=== PATIENT | male | born 1965 | race Caucasian/White ===

== ENCOUNTER → 2019-11-23 07:41 | Outpatient (BNVA) | payer MEDICARE, SELFPAY | PROVIDERS: Family Provider Internal Medicine; PCP Internal Medicine; Visit Provider Nurse Practitioner | DX: F33.2 Major depressive disorder, recurrent severe without psychotic features (principal); F40.10 Social phobia, unspecified | CPT/HCPCS: 99213 ==

== ENCOUNTER → 2019-12-23 07:53 | Outpatient (BNVA) | payer MEDICARE, SELFPAY | PROVIDERS: Family Provider Internal Medicine; PCP Internal Medicine; Visit Provider Social Worker | DX: F33.2 Major depressive disorder, recurrent severe without psychotic features (principal); F40.10 Social phobia, unspecified | CPT/HCPCS: 90834 ==

== ENCOUNTER → 2020-01-06 07:48 | Outpatient (BNVA) | payer MEDICARE, SELFPAY | PROVIDERS: Family Provider Internal Medicine; PCP Internal Medicine; Visit Provider Social Worker | DX: F33.2 Major depressive disorder, recurrent severe without psychotic features (principal); F40.10 Social phobia, unspecified | CPT/HCPCS: 90834 ==

== ENCOUNTER → 2020-02-07 07:54 | Outpatient (BNVA) | payer MEDICARE, SELFPAY | PROVIDERS: Family Provider Internal Medicine; PCP Internal Medicine; Visit Provider Specialist | DX: G40.109 Localization-related (focal) (partial) symptomatic epilepsy and epileptic syndromes with simple partial seizures, not intractable, without status epilepticus (principal) | CPT/HCPCS: 99213 ==

== ENCOUNTER → 2020-02-22 08:11 | Outpatient (BNVA) | payer MEDICARE, SELFPAY | PROVIDERS: Family Provider Internal Medicine; PCP Internal Medicine; Visit Provider Nurse Practitioner | DX: F40.10 Social phobia, unspecified (principal); F33.2 Major depressive disorder, recurrent severe without psychotic features | CPT/HCPCS: 99213 ==

== ENCOUNTER → 2020-02-24 10:39 | Outpatient (BNVA) | payer MEDICARE, SELFPAY | PROVIDERS: Family Provider Internal Medicine; PCP Internal Medicine; Visit Provider Social Worker | DX: F40.10 Social phobia, unspecified (principal); F33.2 Major depressive disorder, recurrent severe without psychotic features | CPT/HCPCS: 90834 ==

== ENCOUNTER → 2020-03-08 12:07 | Outpatient (BNVA) | payer MEDICARE, SELFPAY | PROVIDERS: Family Provider Internal Medicine; PCP Internal Medicine; Visit Provider Specialist | DX: G40.909 Epilepsy, unspecified, not intractable, without status epilepticus (principal) | CPT/HCPCS: 95816 ==

== ENCOUNTER 2020-03-08 14:57 | Outpatient (CLI) | payer MEDICARE, SELFPAY ==
--- NOTE | 2020-03-08 15:19 | CT_ITS ---
WS: [id number] CT HEAD TECHNIQUE: Noncontrast CT of the head obtained from the skullbase to the vertex. CLINICAL INFORMATION: PATIENT FELL MULTIPLE TIMES COMPARISON: None. DLP: 800.[address] scans at [facility] use at least one of these dose optimization techniques: automat ed exposure control; mA and/or kV adjustment per patient size (includes targeted exams where dose is matched to clinical indication); or iterative reconstruction. FINDINGS: No evidence of intracranial hemorrhage or mass effect. Ventricular system and basal cisterns are hong nt. Moderate small vessel changes with moderate parenchymal volume loss. Prior postoperative changes left frontoparietal temporal craniotomy with cranioplasty. Chronic encephalomalacia in the underlying left temporal lobe resection cavity. Ex vacuo dilatation left lateral ventricle. No intracranial hem orrhage. Mastoid air cells are well aerated. Paranasal sinuses are well aerated. Paranasal sinuses and mastoid air cells are well aerated. .Normal visualized soft tissues. CT/CT head wo con* [id number] IMPRESSION: 1. Chronic postoperative changes left frontal parietal and temporal craniotomy with resection cavity in the left temporal lobe with encephalomalacia. 2. Ex vacuo dilatation left lateral ventricle unchanged. 3. No intracranial hemorrhage.
[2020-03-08 16:38] LABS: Alanine Aminotransferase 20 U/L (0-41); Albumin Level 4.8 g/dL (3.5-5.2); Alkaline Phosphatase 101 IU/L (40-130); Anion Gap 17.5 (5-19); Aspartate Amino Transferase 30 U/L (0-40); Blood Urea Nitrogen 13 mg/dL (6-20); Calcium 9.9 mg/dL (8.5-10.5); Carbon Dioxide 26 mmol/L (22-29); Chloride 102 mmol/L (98-107); Globulin 2.7 g/dL (1.3-4.6); Glomerular Filtration Rate 69.8 mL/min (90-130); Glucose 105 mg/dL (65-115); Osmolality Calculated 291 mOsm/kg (285-295); Potassium 3.5 mmol/L (3.5-5.1); Sodium 142 mmol/L (136-145); Thyroid Stimulating Hormone 2.53 uIU/mL (0.27-4.20); Total Bilirubin 0.7 mg/dL (0.15-1.2); Total Protein 7.5 g/dL (6.6-8.7)
[2020-03-17 13:07] LABS: Lacosamie (Vimpat) 16.2 mcg/mL
== END 2020-03-08 14:58 | disposition home or self-care (01) ==
LOC: RAD 15:03
PROVIDERS: Specialist; Family Provider Internal Medicine; PCP Internal Medicine; Visit Provider Physician Assistant
DX: G40.109 Localization-related (focal) (partial) symptomatic epilepsy and epileptic syndromes with simple partial seizures, not intractable, without status epilepticus (principal); G93.89 Other specified disorders of brain
CPT/HCPCS: 70450; 80053; 80299; 84443

== ENCOUNTER 2020-03-16 14:52 | Outpatient (CLI) | payer MEDICARE, SELFPAY ==
[2020-03-22 15:41] LABS: Lacosamie (Vimpat) 11.2 mcg/mL
== END 2020-03-16 14:53 | disposition home or self-care (01) ==
LOC: LAB 14:56
PROVIDERS: Family Provider Internal Medicine; PCP Internal Medicine; Visit Provider Specialist
DX: G40.109 Localization-related (focal) (partial) symptomatic epilepsy and epileptic syndromes with simple partial seizures, not intractable, without status epilepticus (principal)
CPT/HCPCS: 36415; 80299

== ENCOUNTER → 2020-06-15 07:32 | Outpatient (BNVA) | payer MEDICARE, SELFPAY | PROVIDERS: Family Provider Internal Medicine; PCP Internal Medicine; Visit Provider Nurse Practitioner | DX: F33.2 Major depressive disorder, recurrent severe without psychotic features (principal); F40.10 Social phobia, unspecified | CPT/HCPCS: 99213 ==

== ENCOUNTER → 2020-06-29 10:41 | Outpatient (BNVA) | payer MEDICARE, SELFPAY | PROVIDERS: Family Provider Internal Medicine; PCP Internal Medicine; Visit Provider Specialist | DX: G93.40 Encephalopathy, unspecified (principal); G40.109 Localization-related (focal) (partial) symptomatic epilepsy and epileptic syndromes with simple partial seizures, not intractable, without status epilepticus | CPT/HCPCS: 36415; 80175; 80299; 95816 ==

== ENCOUNTER 2020-06-29 15:14 | Outpatient (CLI) | payer MEDICARE, SELFPAY ==
[2020-07-03 19:19] LABS: Lamotrigine (Lamictal) Level 6.2 mcg/mL (4.0-18.0)
[2020-07-05 16:20] LABS: Lacosamie (Vimpat) 10.8 mcg/mL
== END 2020-06-29 15:15 | disposition home or self-care (01) ==
LOC: LAB 15:21
PROVIDERS: Family Provider Internal Medicine; PCP Internal Medicine; Visit Provider Specialist
DX: G40.109 Localization-related (focal) (partial) symptomatic epilepsy and epileptic syndromes with simple partial seizures, not intractable, without status epilepticus (principal)
CPT/HCPCS: 36415; 80175; 80299

== ENCOUNTER → 2020-08-14 08:34 | Outpatient (BNVA) | payer MEDICARE, SELFPAY | PROVIDERS: Family Provider Internal Medicine; PCP Internal Medicine; Visit Provider Specialist | DX: G40.109 Localization-related (focal) (partial) symptomatic epilepsy and epileptic syndromes with simple partial seizures, not intractable, without status epilepticus (principal) | CPT/HCPCS: 99214 ==

== ENCOUNTER → 2020-08-24 08:28 | Outpatient (BNVA) | payer MEDICARE, SELFPAY | PROVIDERS: Family Provider Internal Medicine; PCP Internal Medicine; Visit Provider Nurse Practitioner | DX: F33.2 Major depressive disorder, recurrent severe without psychotic features (principal); F40.10 Social phobia, unspecified | CPT/HCPCS: 99214 ==

== ENCOUNTER → 2020-11-20 07:43 | Outpatient (BNVA) | payer MEDICARE, SELFPAY | PROVIDERS: Family Provider Internal Medicine; PCP Internal Medicine; Visit Provider Nurse Practitioner | DX: F33.2 Major depressive disorder, recurrent severe without psychotic features (principal); F40.10 Social phobia, unspecified | CPT/HCPCS: 99213 ==

== ENCOUNTER 2021-01-05 08:58 | Emergency (ER) | payer MEDICARE, SELFPAY ==
[2021-01-05 09:07] VITALS: BP 134/88; PULSE 87; RESP 16; TEMP 36.2; O2SAT 96; BMI 22.8
[2021-01-05 09:22] VITALS: BP 131/84; PULSE 82; RESP 16; O2SAT 98
--- NOTE | 2021-01-05 09:24 | ECG_ITS ---
[facility] Test Date: 2021-01-05 Pat Name: Moisés Ivy Department: Room: Gender: Male On Air Host: : 1965 Requested By: Chente Feng Order Number: [id number] Shira MD: Zander Phillips M.D. Measurements Intervals [place] Rate: 83 P: 61 LA: 155 QRS: 24 QRSD: 100 T: 72 QT: 346 QTc: 408 Interpretive Statements SINUS RHYTHM No previous ECG available for comparison Electronically Signed On 01-05-2021 16:07:41 LIQUEFACTION PLANT OPERATOR by Zander Phillips M.D. [id number]
--- NOTE | 2021-01-05 09:24 | CT_ITS ---
WS: [id number] CT HEAD NONCONTRAST HISTORY: AMS TECHNIQUE: Contiguous axial imaging performed through the brain in 2.5 mm imaging. Bone and soft tiss ue windows. Sagittal and coronal reformats reviewed. All CT scans at [facility] use at ast one of these dose optimization techniques: automated exposure control; mA and/or kV adjustment pe r patient size (includes targeted exams where dose is matched to clinical indication); or iterative r econstruction. DLP: 805.49 mGy.cm COMPARISON: 03/08/2020 No acute intracranial hemorrhage, midline shift or mass effect. Moderate atrophy and chronic ischemic disease. Resection of the LEFT temporal lobe with encephalomala yumi. Resection cavity is causing ex vacuole dilatation of the LEFT lateral ventricle. Ventricles: Mild dilatation of the ventricles, LEFT greater than RIGHT due to ex vacuole dilatation. Paranasal sinuses: As visualized are clear. Mastoid air cells: Well pneumatized. Calvarium and scalp: Craniotomy site involving the LEFT frontal, temporal and parietal regions. No in terval change. CT/CT head wo con* [id number] IMPRESSION: 1. Stable head CT since 03/08/2020. 2. Temporal lobe encephalomalacia from a prior tumor resection. Stable ex vacu ole dilatation of the LEFT lateral ventricle and craniotomy site. 3. Moderate chronic microvascular ischemic change.
--- NOTE | 2021-01-05 09:24 | XR_ITS ---
WS: [id number] PORTABLE CHEST HISTORY: dyspnea/cough COMPARISON: None available. Lungs are well-aerated. Lucency adjacent to the RIGHT costophrenic angle. Small pneumothorax is not e xcluded. Otherwise the lungs are clear. No pleural effusion. Cardiac size: Normal. Mediastinum/Aorta: Normal mediastinum. No osseous abnormality seen. XR/XR chest 1V portable [id number] IMPRESSION: 1. No pneumonia. 2. Indeterminate for possible small pneumothorax at the RIGHT costophrenic angl e. For confirmation upright PA chest radiograph during inspiration and expirati on or LEFT lateral decubitus chest can be obtained.
--- NOTE | 2021-01-05 09:36 | ED_ITS ---
HPI - Dizziness General: Chief Complaint: Dizziness Stated Complaint: dizziness, double vision Time Seen by Provider: 01/05/21 08:59 History of Present Illness: HPI Narrative: 55-year-old male was at work and got lightheaded and dizzy started having some disorientation and double vision. This happened around 830 he is pretty much completely resolved now except for the double vision but the double vision is mostly when he looks to the right. Associated symptoms: Denies chest pain, chills, headache(s), malaise, nausea, nasal congestion, palpitations, syncope or vomiting Associated neuro symptoms: Deny confusion, dysphagia or numbness in extremities Review of Systems Const: Denies: fever(s), chills, body aches, fatigue, malaise or night sweats Eyes: Reports: change in vision and blurry vision ENMT: Denies: throat pain, oral sores, dental pain, nasal discharge or nasal congestion Card: Denies: chest pain, palpitations, irregular heart rhythm, edema, syncope, dyspnea on exertion, orthopnea or leg pain with exertion Resp: Denies: dyspnea, productive cough, non-productive cough or wheezing GI: Denies: abdominal pain, nausea, vomiting, hematemesis, coffee ground em esis, dysphagia, heartburn, diarrhea, constipation, GI cramping, hematochezia or melena : Denies: flank pain, difficulty urinating, dysuria, urinary frequency, urinary urgency, urinary incontinence or hematuria Musc: Denies: neck pain, back pain, extremity pain, extremity swelling, joint pain or joint swelling Skin/Breast: Denies: rash, pruritus or erythema Neuro: Denies: headache(s), numbness in extremities, weakness in extremities, sensory changes, lack of coordination, difficulty walking, frequent falls, dizziness, vertigo or confusion Psych: Denies: anxiety, depression, loss of interest, visual hallucinations, auditory hallucinations, suicidal ideation or homicidal ideation Endo: Denies: polyuria, polydipsia, tired all the time or cold intolerance Morgan/Lymph: Denies: easy bruising, easy bleeding, petechiae, enlarged lymph nodes or tender lymph nodes PFSH ED PFSH: Medical History (Updated 01/05/21 @ 17:51 by Chente Urena DO) Major depressive disorder, recurrent severe without psychotic features Social phobia, unspecified Family History Other Diabetes Denies family history of CAD (coronary artery disease) Cancer Hypertension Stroke Social History (Updated 01/05/21 @ 09:11 by Stevie Lyn RN) Smoking and tobacco status: never smoked Alcohol intake: never History of recent travel: No Physical Exam Const: COMMON NORMALS: no acute distress GENERAL APPEARANCE: cooperative and comfortable ORIENTATION/CONSCIOUSNESS: Yes awake, Yes oriented to person, Yes oriented to place and Yes oriented to time HENMT: COMMON NORMALS: normocephalic, atraumatic, hearing grossly normal bilaterally, external ears normal, EAC's normal, TM's normal bilaterally, Normal nasal mucous membranes and turbinates present, moist oral mucous membranes and oropharynx normal HEAD & SCALP: normocephalic and atraumatic NOSE: Normal nasal mucous membranes and turbinates present EXTERNAL EAR: Yes external ears normal EXTERNAL AUDITORY CANAL: EAC's normal TYMPANIC MEMBRANE: TM's normal bilaterally Eye: COMMON NORMALS: Equal, round and reactive pupils present, EOMs intact bilaterally, conjunctivae normal and no scleral icterus CONJUNCTIVA: Yes conjunctivae normal PUPIL: Yes Equal, round and reactive pupils present Neck/C-Spine: COMMON NORMALS: full ROM, no lymphadenopathy, supple and no JVD Lymph: LYMPHATIC: no lymphadenopathy noted and no lymphedema noted Resp: COMMON NORMALS: normal respiratory effort, No retractions, No use of accessory muscles and clear to auscultation bilaterally AUSCULTATION: clear to auscultation bilaterally Cardio: COMMON NORMALS: no JVD, regular rate, regular rhythm and No murmurs present (Cardio) RATE: regular rate RHYTHM: regular rhythm GI: COMMON NORMALS: Soft to palpation and No hepatosplenomegaly present AUSCULTATION: Yes normoactive bowel sounds PALPATION: Yes Soft to palpation, No Tenderness to palpation present (GI), No Guarding due to palpation present (GI) and Yes No hepatosplenomegaly present Extremity: COMMON NORMALS: normal to inspection, capillary refill normal, no clubbing, cyanosis or edema, no calf tenderness and no pedal edema Neuro: SENSORIUM/ORIENTATION: Yes oriented to person, Yes oriented to place and Yes oriented to time Skin: COMMON NORMALS: no rashes or lesions noted GENERAL SKIN EXAM: no rashes or lesions noted Course Vital Signs: Vital signs: Vital Signs Temperature 97.1 F L 01/05/21 09:07 Pulse Rate 98 01/05/21 12:36 Respiratory Rate 18 01/05/21 12:36 Blood Pressure 117/76 01/05/21 10:59 Pulse Oximetry 92 01/05/21 12:36 MDM - Dizziness MDM Narrative: Medical decision making narrative: Symptoms completely resolved. Discussed with Dr. Martinez she thinks it probably is a combination of his medications. We will get levels on him discharge him home follow-up with Dr. Martinez next week if his any problems return. Lab Data: Labs: Lab Results 01/05/21 01/05/21 01/05/21 Range/Units 09:40 10:00 10:00 WBC 6.5 (4.0-10.0) 10^3/ uL RBC 5.05 (4.1-5.3) 10^6/u L Hgb 15.6 (11.7-16.6) g/dL Hct 45.9 (42.0-52.0) % MCV 90.9 (80-94) fL MCH 30.9 (28.0-34.0) pg MCHC 34.0 (30.0-36.0) g/dL RDW 12.9 (12.1-15.1) % Plt Count 224 (130-400) 10^3/c mm MPV 8.9 (7.4-10.4) fL Neut % (Auto) 77.4 % Lymph % (Auto) 11.8 % [place] % (Auto) 7.7 % Eos % (Auto) 1.7 % Baso % (Auto) 1.1 % Neut # (Auto) 5.00 (1.8-7.7) 10^3/u L Lymph # (Auto) 0.8 (0.8-4.8) 10^3/u L [place] # (Auto) 0.5 (0.2-0.9) 10^3/u L Eos # (Auto) 0.1 (0.0-0.8) 10^3/u L Baso # (Auto) 0.1 (0.0-0.1) 10^3/u L Nucleated RBC % (a uto) 0 % Nucleated RBCs # 0.0 /100WBC Sodium 139 (136-145) mmol/L Potassium 4.0 (3.5-5.1) mmol/L Chloride 105 (98-107) mmol/L Carbon Dioxide 25 (22-29) mmol/L Anion Gap 13.0 (5-19) BUN 15 (6-20) mg/dL Creatinine 0.9 (0.7-1.2) mg/dL GFR Calculation 87.9 L (90-130) mL/min Glucose 88 (65-115) mg/dL Calculated Osmolal ity 288 (285-295) mOsm/k g Calcium 8.9 (8.5-10.5) mg/dL Total Bilirubin 0.6 (0.15-1.2) mg/dL AST 22 (0-40) U/L ALT 18 (0-41) U/L Alkaline Phosphata se 87 (40-130) IU/L Creatine Kinase 118 (39-308) U/L Troponin T Baselin e (0-15) ng/L Troponin T 120 Min dena (0-15) ng/L Delta Troponin T (0-10) ABS# Total Protein 6.7 (6.6-8.7) g/dL Albumin 4.5 (3.5-5.2) g/dL Globulin 2.2 (1.3-4.6) g/dL Urine Color Yellow (Yellow) Urine Appearance Clear (CLEAR) Urine pH 7 (5-7) Ur Specific Gravit y 1.010 (1.005-1.030) Urine Protein Neg (Negative) Urine Glucose (UA) Norm (Normal) Urine Ketones Negative (Negative) Urine Blood Neg (Negative) Urine Nitrate Negative (Negative) Urine Bilirubin Neg (Negative) Urine Urobilinogen Norm (Negative) mg/dL Ur Leukocyte Ursula ase Negative (Negative) 01/05/21 01/05/21 Range/Units 10:00 12:09 WBC (4.0-10.0) 10^3/ uL RBC (4.1-5.3) 10^6/u L Hgb (11.7-16.6) g/dL Hct (42.0-52.0) % MCV (80-94) fL MCH (28.0-34.0) pg MCHC (30.0-36.0) g/dL RDW (12.1-15.1) % Plt Count (130-400) 10^3/c mm MPV (7.4-10.4) fL Neut % (Auto) % Lymph % (Auto) % [place] % (Auto) % Eos % (Auto) % Baso % (Auto) % Neut # (Auto) (1.8-7.7) 10^3/u L Lymph # (Auto) (0.8-4.8) 10^3/u L [place] # (Auto) (0.2-0.9) 10^3/u L Eos # (Auto) (0.0-0.8) 10^3/u L Baso # (Auto) (0.0-0.1) 10^3/u L Nucleated RBC % (a uto) % Nucleated RBCs # /100WBC Sodium (136-145) mmol/L Potassium (3.5-5.1) mmol/L Chloride (98-107) mmol/L Carbon Dioxide (22-29) mmol/L Anion Gap (5-19) BUN (6-20) mg/dL Creatinine (0.7-1.2) mg/dL GFR Calculation (90-130) mL/min Glucose (65-115) mg/dL Calculated Osmolal ity (285-295) mOsm/k g Calcium (8.5-10.5) mg/dL Total Bilirubin (0.15-1.2) mg/dL AST (0-40) U/L ALT (0-41) U/L Alkaline Phosphata se (40-130) IU/L Creatine Kinase (39-308) U/L Troponin T Baselin e 8 (0-15) ng/L Troponin T 120 Min dena 6.00 (0-15) ng/L Delta Troponin T -2.00 L (0-10) ABS# Total Protein (6.6-8.7) g/dL Albumin (3.5-5.2) g/dL Globulin (1.3-4.6) g/dL Urine Color (Yellow) Urine Appearance (CLEAR) Urine pH (5-7) Ur Specific Gravit y (1.005-1.030) Urine Protein (Negative) Urine Glucose (UA) (Normal) Urine Ketones (Negative) Urine Blood (Negative) Urine Nitrate (Negative) Urine Bilirubin (Negative) Urine Urobilinogen (Negative) mg/dL Ur Leukocyte Ursula ase (Negative) Discharge Plan Discharge Patient Disposition: Home Clinical Impression: Temporal lobe epilepsy, Medication side effects Condition: Stable Prescriptions: No Action cholecalciferol (vitamin D3) [Vitamin D3] 25 mcg (1,000 unit) capsule 1,000 unit PO DAILY@0700 RF: 0 Lamictal 150 mg tablet 150 mg PO BID@0700,1900 RF: 0 Zoloft 100 mg tablet 150 mg PO DAILY@0700 RF: 0 clonazepam 1 mg tablet 1 mg PO BID@0700,1900 RF: 0 trazodone 100 mg tablet 100 mg PO DAILY@0700 RF: 0 Vimpat 150 mg tablet 300 mg PO BID@0700,1900 RF: 0 Discharge Orders: Discharge ED (Routine); Ordered 01/05/21 Ordered By: Chente Urena Discharge Diet: Usual diet Discharge Activity: Resume usual activity Patient Instructions: Opioid Safety Coding Level of Care Code ED Maintenance Operator for Nitish Lawrence
[2021-01-05 09:45] LABS: Add Urine Microscopic? NO
[2021-01-05 10:00] VITALS: BP 121/81; PULSE 84; RESP 16; O2SAT 98
[2021-01-05 10:02] VITALS: O2SAT 98
[2021-01-05 10:05] LABS: Basophils # 0.1 10^3/uL (0.0-0.1); Basophils % 1.1 %; Eosinophils # 0.1 10^3/uL (0.0-0.8); Eosinophils % 1.7 %; Hematocrit 45.9 % (42.0-52.0); Hemoglobin 15.6 g/dL (11.7-16.6); Lymphocytes # 0.8 10^3/uL (0.8-4.8); Lymphocytes % 11.8 %; Mean Corpuscular Hemoglobin 30.9 pg (28.0-34.0); Mean Corpuscular Volume 90.9 fL (80-94); Mean Platelet Volume 8.9 fL (7.4-10.4); Monocytes # 0.5 10^3/uL (0.2-0.9); Monocytes % 7.7 %; Neutrophils % 77.4 %; Nucleated Red Blood Cells % 0 %; Platelet Count 224 10^3/cmm (130-400); Red Blood Count 5.05 10^6/uL (4.1-5.3); Red Cell Distribution Width 12.9 % (12.1-15.1); White Blood Count 6.5 10^3/uL (4.0-10.0)
[2021-01-05 10:08] LABS: Bilirubin Urine Neg (Negative); Blood Urine Neg (Negative); Glucose Urine UA Norm (Normal); Ketones Urine Negative (Negative); Leukocyte Esterase Urine Negative (Negative); Nitrate Urine Negative (Negative); Protein Urine Neg (Negative); Urine Appearance Clear (CLEAR); Urine Color Yellow (Yellow); Urobilinogen Urine Norm (Negative); pH Urine 7 (5-7)
[2021-01-05 10:25] LABS: Alanine Aminotransferase 18 U/L (0-41); Albumin Level 4.5 g/dL (3.5-5.2); Alkaline Phosphatase 87 IU/L (40-130); Aspartate Amino Transferase 22 U/L (0-40); Blood Urea Nitrogen 15 mg/dL (6-20); Calcium 8.9 mg/dL (8.5-10.5); Carbon Dioxide 25 mmol/L (22-29); Chloride 105 mmol/L (98-107); Creatine Phosphokinase 118 U/L (39-308); Creatinine Clr Calc Pharmacy 93.6216; Globulin 2.2 g/dL (1.3-4.6); Glomerular Filtration Rate 87.9 mL/min (90-130); Glucose 88 mg/dL (65-115); Osmolality Calculated 288 mOsm/kg (285-295); Sodium 139 mmol/L (136-145); Total Bilirubin 0.6 mg/dL (0.15-1.2); Total Protein 6.7 g/dL (6.6-8.7)
[2021-01-05 10:27] LABS: Troponin(5th) Baseline 8 ng/L (0-15)
--- NOTE | 2021-01-05 10:30 | XRR_ITS ---
PROCEDURE INFORMATION: Exam: XR Chest, 2 Views Exam date and time: 01/05/2021 10:35 AM Age: 55 years old Clinical indication: Shortness of breath; Additional info: Questionable pneumothorax TECHNIQUE: Imaging protocol: XR of the chest Views: 2 views. COMPARISON: CT XR chest 1V portable [id number] 01/05/2021 9:47 AM FINDINGS: Lungs: Unremarkable. No consolidation. Pleural spaces: Unremarkable. No pleural effusion. No pneumothorax. Heart/Mediastinum: Stable cardiomediastinal silhouette. Bones/joints: Unremarkable. XR/XR chest 2V insp/exp [id number] IMPRESSION: No acute findings. No pneumothorax, as clinically questioned.
[2021-01-05 10:59] VITALS: BP 117/76; BP 120/79; BP 136/85; PULSE 70; PULSE 74
--- NOTE | 2021-01-05 11:14 | CT_ITS ---
WS: [id number] CT ANGIOGRAM CEREBRAL AND CAROTID ARTERIES HISTORY: visual disturbance TECHNIQUE: CT angiogram is performed of the carotid and cerebral arteries. During arterial injection imaging is obtained from the skull vertex to the aortic arch in 1.25 mm imaging. Coronal and sagittal reformats are submitted. Additional multi planar reformats of the carotid and cerebral arteries are submitted, MIP imaging also reviewed. NASCET criteria utilized. All CT scans at [facility] use at least one of these dose optimization techniques: automated exposure control; mA and/or kV ad justment per patient size (includes targeted exams where dose is matched to clinical indication); or iterative reconstruction. CONTRAST: Omnipaque 350; 95 mL IV. DLP: 2024.74 mGy.cm COMPARISON: None available. Carotid Angiogram: Right carotid: Common carotid artery: Arises normally from the innominate artery. No significant plaque or stenosis. Internal carotid artery: No plaque or stenosis. External carotid artery: Patent. Left carotid: Common carotid artery: Arises normally from the aorta. No significant plaque or stenosis. Internal carotid artery: No plaque or stenosis. External carotid artery: Patent. Right vertebral artery: Unremarkable. Left vertebral artery: Unremarkable. Arises normally from the subclavian artery. Subclavian arteries: No stenosis or significant abnormality. Upper thorax: Normal. Thyroid gland: Normal. Osseous structures: Unremarkable. CEREBRAL ANGIOGRAM: Intracranial vertebral arteries: Mildly dominant RIGHT vertebral artery. Both vertebral arteries are patent. Basilar artery: No significant stenosis or occlusion. No aneurysm. Intracranial Internal carotid arteries: Demonstrates no significant stenosis or plaque. Very minimal calcification in the supraclinoid carotids. Middle cerebral arteries: Normal. Anterior cerebral arteries and ACOM: Small caliber but RIGHT patent A1 segments. Posterior cerebral arteries and PCOM's: Normal. Small caliber or absent LEFT transverse sinus. Otherwise dural venous sinuses are patent. Mastoid air cells: Normal. Paranasal sinuses: Normal. Calvarium: Large craniotomy defect involving the LEFT frontal, temporal and parietal region. Large ar ea of encephalomalacia involving the LEFT temporal lobe. CT/CT angio headneck* [id number] IMPRESSION: 1. Normal carotid arteries. Arteries are tortuous with prominent loops but no stenosis. 2. No aneurysms or significant occlusions.
[2021-01-05] MEDS: iohexol 350 mg/mL 100 mL Btl IV (11:26)
[2021-01-05 12:36] VITALS: PULSE 98; RESP 18; O2SAT 92
--- NOTE | 2021-01-05 15:24 | ECG_ITS ---
[facility] Test Date: 2021-01-05 Pat Name: Moisés Ivy Department: Room: Gender: Male [place] Machine Operator: : 1965 Requested By: Chente Feng Order Number: [id number] Shira MD: Zander Phillips M.D. Measurements Intervals [place] Rate: 64 P: 52 NH: 172 QRS: -14 QRSD: 108 T: 57 QT: 383 QTc: 396 Interpretive Statements SINUS RHYTHM Compared to ECG 01/05/2021 09:32:19 No significant changes Electronically Signed On 01-05-2021 16:14:29 GLOBAL CMO by Zander Phillips M.D. [id number]
[2021-01-10 17:57] LABS: Lamotrigine (Lamictal) Level 7.4 mcg/mL (4.0-18.0)
== END 2021-01-05 12:37 | disposition home or self-care (01) ==
PROVIDERS: Emergency Provider Family Medicine
DX: G40.802 Other epilepsy, not intractable, without status epilepticus (principal); T88.7XXA Unspecified adverse effect of drug or medicament, initial encounter; T50.905A Adverse effect of unspecified drugs, medicaments and biological substances, initial encounter
CPT/HCPCS: 36415; 70450; 70496; 70498; 71045; 71046; 80053; 80175; 81003; 82550; 84484; 85025; 93005; Q9967

== ENCOUNTER → 2021-01-25 07:58 | Outpatient (BNVA) | payer MEDICARE, SELFPAY | PROVIDERS: Visit Provider Specialist | DX: G40.109 Localization-related (focal) (partial) symptomatic epilepsy and epileptic syndromes with simple partial seizures, not intractable, without status epilepticus (principal); M54.30 Sciatica, unspecified side | CPT/HCPCS: 99214 ==

== ENCOUNTER 2021-01-28 09:07 | Emergency (ER) | payer MEDICARE, SELFPAY ==
[2021-01-28 09:11] VITALS: BP 112/82; PULSE 80; RESP 19; TEMP 36.2; O2SAT 100; BMI 22.8
--- NOTE | 2021-01-28 09:19 | W.ED.EXTPRO ---
HPI - Extremity Problem General: Chief complaint: Extremity Problem,Nontraumatic Stated complaint: r hip/leg pain (3 days) Time Seen by Provider: 01/28/21 09:10 Source: patient Mode of arrival: ambulatory Limitations: no limitations History of Present Illness: HPI Narrative: 55-year-old male states he been having right hip pain with shooting pain down the back of his leg in his calf. States it started 3 days ago and is a burning shooting type pain. He rates his pain a 7 out of 10. Denies any known injuries. States it is worse with walking improved with rest. He denies any recent long trips. Denies any calf swelling. Associated symptoms: Deny chest pain, fever(s) or rash Review of Systems Const: Denies: fever(s), chills, body aches or change in appetite Eyes: Denies: blurry vision or eye discomfort ENMT: Denies: throat pain or dental pain Card: Denies: chest pain Resp: Denies: dyspnea GI: Denies: abdominal pain, nausea, vomiting or diarrhea : Denies: dysuria Musc: Reports: back pain; Denies: neck pain Skin/Breast: Denies: rash Neuro: Denies: headache(s) Psych: Denies: depression Morgan/Lymph: Denies: easy bruising All/Imm: Denies: urticaria PFSH ED PFSH: Medical History (Updated 01/28/21 @ 09:18 by Melodie Hernandez MD) Major depressive disorder, recurrent severe without psychotic features Social phobia, unspecified Family History Other Diabetes Denies family history of CAD (coronary artery disease) Cancer Hypertension Stroke Social History Smoking and tobacco status: never smoked Alcohol intake: never History of recent travel: No Physical Exam Const: COMMON NORMALS: no acute distress, patient oriented x3 and healthy appearing HENMT: COMMON NORMALS: normocephalic and atraumatic HEAD & SCALP: normocephalic and atraumatic Eye: COMMON NORMALS: Equal, round and reactive pupils present and EOMs intact bilaterally PUPIL: Yes Equal, round and reactive pupils present Neck/C-Spine: COMMON NORMALS: full ROM and supple Chest: COMMONS NORMALS: normal inspection of the chest and normal palpation of entire chest wall Resp: COMMON NORMALS: normal respiratory effort, No retractions, No use of accessory muscles and clear to auscultation bilaterally AUSCULTATION: clear to auscultation bilaterally Cardio: COMMON NORMALS: regular rate, regular rhythm and No murmurs present (Cardio) RATE: regular rate RHYTHM: regular rhythm GI: COMMON NORMALS: Normal to inspection, nondistended, normoactive bowel sounds present, Soft to palpation, non-tender and no masses PALPATION: Yes Soft to palpation Extremity: COMMON NORMALS: normal to inspection and full ROM NARRATIVE EXTREMITY EXAM: Slight tenderness over right hip. No calf tenderness or swelling Neuro: COMMON NORMALS: patient oriented x3, moves all extremities and no focal motor deficits Psych: COMMON NORMALS: mental status grossly normal, Normal thought process present and cooperative THOUGHT PROCESS: Normal thought process present Skin: COMMON NORMALS: no rashes or lesions noted and no wounds GENERAL SKIN EXAM: no rashes or lesions noted Course Vital Signs: Vital signs: Vital Signs Temperature 97.2 F L 01/28/21 09:11 Pulse Rate 80 01/28/21 09:11 Respiratory Rate 19 H 01/28/21 09:11 Blood Pressure 112/82 01/28/21 09:11 Pulse Oximetry 100 01/28/21 09:11 MDM - Extremity (Nontraumatic) MDM Narrative: Medical decision making narrative: Patient presents here with likely sciatica. He has no signs of DVT or major back injury or epidural abscess. We will place him on steroids and pain meds. He is to follow-up his PCP and return if worsening. He understands and agrees to plan. Discharge Plan Discharge Patient Disposition: Home Clinical Impression: Sciatica Qualifiers: Laterality: right Qualified Code(s): M54.31 - Sciatica, right side Condition: Stable Prescriptions: New Naprosyn 500 mg tablet 500 mg PO BID PRN (Reason: pain) Qty: 20 RF: 0 Robaxin-750 750 mg tablet 750 mg PO Q6H Qty: 30 RF: 0 Medrol (Fermin) 4 mg tablets,dose pack See Rx Instructions .ROUTE .COMPLEX Qty: 21 RF: 0 No Action cholecalciferol (vitamin D3) [Vitamin D3] 25 mcg (1,000 unit) capsule 1,000 unit PO DAILY@0700 RF: 0 Zoloft 100 mg tablet 150 mg PO DAILY@0700 Qty: 45 RF: 2 Lamictal 150 mg tablet 150 mg PO BID@0700,1900 RF: 0 trazodone 100 mg tablet 100 mg PO DAILY@0700 RF: 0 Vimpat 150 mg tablet 300 mg PO BID@0700,1900 RF: 0 clonazepam 1 mg tablet 1 mg PO DAILY RF: 0 Discharge Orders: Discharge ED (Routine); Ordered 01/28/21 Ordered By: Melodie Hernandez Discharge Diet: Advance as tolerated Discharge Activity: Resume usual activity Patient Instructions: Sciatica (ED) Coding Level of Care Code ED Technology Administrator for Nitish Lawrence
[2021-01-28] MEDS: ketorolac 30 mg/mL INJ IM (09:20)
[2021-01-28] MEDS: dexamethasone 10 mg/mL INJ IM (09:20)
[2021-01-28 09:53] VITALS: BP 113/73; PULSE 77; RESP 16; O2SAT 99
== END 2021-01-28 09:55 | disposition home or self-care (01) ==
PROVIDERS: Emergency Provider Emergency Medicine
DX: M54.31 Sciatica, right side (principal)
CPT/HCPCS: 96372; 99283; J1100; J1885

== ENCOUNTER 2021-01-29 15:12 | Outpatient (CLI) | payer MEDICARE, SELFPAY ==
--- NOTE | 2021-01-29 15:30 | CT_ITS ---
WS: [id number] CT of the lumbar spine, additional two-dimensional coronal and sagittal imaging was obtained. 01/30/20 21 Clinical Data: M54.16 - Radiculopathy, lumbar region Comparison: None. DLP: 1949.[address] scans at [facility] use at least one of these dose optimization techniques: automat ed exposure control; mA and/or kV adjustment per patient size (includes targeted exams where dose is matched to clinical indication); or iterative reconstruction. Findings: There is minimal osteoarthritic change of the lumbar vertebral bodies L2-L5. The S1 vertebr al body has the appearance of the lumbar vertebral body. No compression fractures or subluxation is s een. The transverse processes and SI joints are normal. There is no degenerative disc narrowing. T12-L1: No canal stenosis, disc bulge or foraminal narrowing is seen. L1-L2: No canal stenosis, disc bulge or foraminal narrowing is seen. L2-L3: No canal stenosis, disc bulge or foraminal narrowing is seen. L3-L4: No canal stenosis, disc bulge or foraminal narrowing is seen. L4-L5: There is a broad-based disc bulge causing canal and foraminal stenosis. L5-S1: There is a broad-based disc bulge causing canal and foraminal stenosis. CT/CT lumbar spine wo con* [id number] Impression: 1. Minimal degenerative arthritic change from L2 through L5. 2. Disc bulging causing canal and foraminal stenosis at L4-L5 and L5-S1.
== END 2021-01-29 15:13 | disposition home or self-care (01) ==
LOC: RADWPI 15:16
PROVIDERS: PCP Internal Medicine; Visit Provider Specialist
DX: M54.16 Radiculopathy, lumbar region (principal); M48.061 Spinal stenosis, lumbar region without neurogenic claudication; M48.07 Spinal stenosis, lumbosacral region; M51.26 Other intervertebral disc displacement, lumbar region; M51.27 Other intervertebral disc displacement, lumbosacral region
CPT/HCPCS: 72131

== ENCOUNTER → 2021-02-20 07:39 | Outpatient (BNVA) | payer MEDICARE, SELFPAY | PROVIDERS: PCP Internal Medicine; Visit Provider Nurse Practitioner | DX: F33.2 Major depressive disorder, recurrent severe without psychotic features (principal); F40.10 Social phobia, unspecified | CPT/HCPCS: 99214 ==

== ENCOUNTER 2021-03-01 09:30 | Outpatient (RCR) | payer MEDICARE, SELFPAY | END 2021-03-16 23:59 | disposition home or self-care (01) | LOC: SPT 09:30 | PROVIDERS: PCP Internal Medicine; Referring Provider Internal Medicine; Visit Provider Internal Medicine | DX: M54.31 Sciatica, right side (principal) | CPT/HCPCS: 97161 ==

== ENCOUNTER → 2021-03-06 08:03 | Outpatient (BNVA) | payer MEDICARE, SELFPAY | PROVIDERS: PCP Internal Medicine; Visit Provider Specialist | DX: G40.109 Localization-related (focal) (partial) symptomatic epilepsy and epileptic syndromes with simple partial seizures, not intractable, without status epilepticus (principal); M48.061 Spinal stenosis, lumbar region without neurogenic claudication | CPT/HCPCS: 80175; 80299; 99214 ==

== ENCOUNTER 2021-03-06 08:53 | Outpatient (CLI) | payer MEDICARE, SELFPAY ==
[2021-03-12 14:28] LABS: Lacosamie (Vimpat) 10.6 mcg/mL
== END 2021-03-06 08:54 | disposition home or self-care (01) ==
PROVIDERS: PCP Internal Medicine; Visit Provider Specialist
DX: G40.109 Localization-related (focal) (partial) symptomatic epilepsy and epileptic syndromes with simple partial seizures, not intractable, without status epilepticus (principal)
CPT/HCPCS: 80175; 80299

== ENCOUNTER → 2021-03-15 08:05 | Outpatient (BNVA) | payer MEDICARE, SELFPAY | PROVIDERS: PCP Internal Medicine; Referring Provider Specialist; Visit Provider Anesthesiology Pain Medicine | DX: M54.9 Dorsalgia, unspecified (principal); M48.061 Spinal stenosis, lumbar region without neurogenic claudication; M51.36 Other intervertebral disc degeneration, lumbar region; M46.00 Spinal enthesopathy, site unspecified; M51.16 Intervertebral disc disorders with radiculopathy, lumbar region; Z79.899 Other long term (current) drug therapy | CPT/HCPCS: 99205 ==

== ENCOUNTER → 2021-03-27 12:40 | Outpatient (BNVA) | payer MEDICARE, SELFPAY | PROVIDERS: PCP Internal Medicine; Visit Provider Anesthesiology Pain Medicine | DX: M54.16 Radiculopathy, lumbar region (principal); M54.9 Dorsalgia, unspecified | CPT/HCPCS: 64483; 64484; J1100; J3490 ==

== ENCOUNTER → 2021-04-12 10:34 | Outpatient (BNVA) | payer MEDICARE, SELFPAY | PROVIDERS: PCP Internal Medicine; Visit Provider Anesthesiology Pain Medicine | DX: M51.16 Intervertebral disc disorders with radiculopathy, lumbar region (principal); M48.061 Spinal stenosis, lumbar region without neurogenic claudication; M51.36 Other intervertebral disc degeneration, lumbar region; M54.9 Dorsalgia, unspecified; M46.00 Spinal enthesopathy, site unspecified; M79.604 Pain in right leg | CPT/HCPCS: 99213 ==

== ENCOUNTER → 2021-05-15 08:16 | Outpatient (BNVA) | payer MEDICARE, SELFPAY | PROVIDERS: PCP Internal Medicine; Visit Provider Nurse Practitioner | DX: F33.2 Major depressive disorder, recurrent severe without psychotic features (principal); F40.10 Social phobia, unspecified | CPT/HCPCS: 99214 ==

== ENCOUNTER → 2021-06-04 08:16 | Outpatient (BNVA) | payer MEDICARE, SELFPAY | PROVIDERS: PCP Internal Medicine; Visit Provider Specialist | DX: N52.9 Male erectile dysfunction, unspecified (principal); G40.802 Other epilepsy, not intractable, without status epilepticus | CPT/HCPCS: 99214 ==

== ENCOUNTER → 2021-07-19 09:30 | Outpatient (BNVA) | payer MEDICARE, SELFPAY | PROVIDERS: PCP Internal Medicine; Referring Provider Specialist; Visit Provider Urology | DX: N52.9 Male erectile dysfunction, unspecified (principal); N53.19 Other ejaculatory dysfunction | CPT/HCPCS: 81003 ==

== ENCOUNTER → 2021-08-07 08:17 | Outpatient (BNVA) | payer MEDICARE, SELFPAY | PROVIDERS: PCP Internal Medicine; Visit Provider Nurse Practitioner | DX: F33.2 Major depressive disorder, recurrent severe without psychotic features (principal); F40.10 Social phobia, unspecified | CPT/HCPCS: 99214 ==

== ENCOUNTER → 2021-09-10 08:16 | Outpatient (BNVA) | payer MEDICARE, SELFPAY | PROVIDERS: PCP Internal Medicine; Visit Provider Specialist | DX: G40.109 Localization-related (focal) (partial) symptomatic epilepsy and epileptic syndromes with simple partial seizures, not intractable, without status epilepticus (principal); R41.840 Attention and concentration deficit; G47.33 Obstructive sleep apnea (adult) (pediatric) | CPT/HCPCS: 99214 ==

== ENCOUNTER 2021-10-30 13:02 | Emergency (ER) | payer MEDICARE, SELFPAY ==
[2021-10-30 13:13] VITALS: BP 132/83; PULSE 76; RESP 18; TEMP 36.4; O2SAT 99; BMI 23.6
--- NOTE | 2021-10-30 13:32 | ED_ITS ---
HPI - Extremity Problem General: Chief complaint: Extremity Injury, Lower Stated complaint: R LEG PAIN ALL OVER Time Seen by Provider: 10/30/21 13:18 Source: patient Mode of arrival: ambulatory Limitations: no limitations History of Present Illness: HPI Narrative: Patient is a nice 56-year-old male who presents to ED today with what he believes is right-sided sciatic discomfort . Patient states he had similar symptoms several months ago that was treated with oral medications as well as an epidural spinal injection from pain management. He states he had been doing well until 4 days ago when pain began bothering him. He does state for work he does a lot of heavy lifting. Patient states he has pain to his right buttock that radiates down the posterior aspect of his right lower extremity all the way to my heel . He feels like pain is slightly alleviated when he stands. Patient denies saddle anesthesia. Is not having any issues with urinary retention or bowel incontinence. MD Complaint: extremity pain Onset (ago): day(s) Pain Consistency: constant Location: right and lower extremity Radiation: distal Associated symptoms: Reports no associated symptoms; Deny chest pain or fever(s) Review of Systems Const: Denies: fever(s), chills, body aches or fatigue Card: Denies: chest pain Resp: Denies: dyspnea GI: Denies: abdominal pain : Denies: flank pain, dysuria or hematuria Musc: Reports: extremity pain; Denies: extremity swelling, joint pain, joint swelling, joint redness, joint warmth, joint stiffness or limited range of motion Neuro: Denies: headache(s), numbness in extremities, weakness in extremities or sensory changes [facility] ED PFSH: Medical History Major depressive disorder, recurrent severe without psychotic features Psychiatric care Social phobia, unspecified Family History Mother Healthy adult Father , UNKNOWN AGE Alcoholism Other Diabetes Social History Smoking and tobacco status: never smoked Alcohol intake: never Marital status: Single Current occupational status: employed History of recent travel: No Physical Exam Const: COMMON NORMALS: no acute distress, average body habitus, patient oriented x3, no limitations, healthy appearing, alert and well nourished Back/Pelvis: LUMBAR SPINE/LOWER BACK: No lumbar spinal tenderness and No paraspinal muscle tenderness PELVIS: Yes buttock abnormal Buttock abnormal laterality: right Right buttock abnormal details: tenderness and Yes sciatic notch tenderness on the right Extremity: COMMON NORMALS: normal to inspection, full ROM, capillary refill normal, no joint enlargement, no clubbing, cyanosis or edema, no calf tenderness and no pedal edema GENERAL: Yes normal exam except as noted Neuro: COMMON NORMALS: patient oriented x3, moves all extremities, no focal motor deficits and no sensory deficits noted SENSORIUM/ORIENTATION: Yes alert Skin: COMMON NORMALS: no rashes or lesions noted GENERAL SKIN EXAM: no rashes or lesions noted Course Vital Signs: Vital signs: Vital Signs Temperature 97.5 F L 10/30/21 13:13 Pulse Rate 66 10/30/21 13:59 Respiratory Rate 18 10/30/21 13:59 Blood Pressure 146/85 10/30/21 13:59 Pulse Oximetry 98 10/30/21 13:59 MDM - Extremity (Nontraumatic) MDM Narrative: Medical decision making narrative: Patient reports feeling better after IM Toradol, Norflex, Dexamethasone. Patient is stable for follow- up outpatient. He was seen for identical symptoms back in February at pain management. Recommend he try to contact them for a follow-up appointment/further treatment options if pain does not improve. If for some reason he needs another referral I asked him to contact his primary care senior copywriter who can assist him with this. Return to ED precautions given. Discharge Plan Discharge Patient Disposition: Home Clinical Impression: Right sided sciatica Condition: Stable Prescriptions: New diclofenac sodium 50 mg tablet,delayed release (DR/EC) 50 mg PO Q12H PRN (Reason: pain) Qty: 20 RF: 0 Medrol (Fermin) 4 mg tablets,dose pack See Rx Instructions .ROUTE .COMPLEX Qty: 21 RF: 0 No Action Shingrix (PF) 50 mcg/0.5 mL suspension for reconstitution 0.5 ml IM ONCE Qty: 1 RF: 0 Lamictal 150 mg tablet 150 mg PO BID@0700,1900 Qty: 60 RF: 5 Vimpat 150 mg tablet 300 mg PO BID@0700,1900 Qty: 120 RF: 5 clonazepam 1 mg tablet 1 mg PO BID Qty: 60 RF: 5 cholecalciferol (vitamin D3) [Vitamin D3] 25 mcg (1,000 unit) capsule 1,000 unit PO DAILY@0700 RF: 0 sertraline [Zoloft] 100 mg tablet 100 mg PO DAILY Qty: 30 RF: 2 omega-3 fatty acids [Fish Oil Concentrate] 1,000 mg capsule 1,000 mg PO DAILY RF: 0 multivitamin Tablet 1 tab PO DAILY RF: 0 tadalafil 20 mg tablet 20 mg PO DAILY PRN (Reason: sexual activity) Qty: 10 RF: 12 trazodone 100 mg tablet See Rx Instructions .ROUTE .COMPLEX Qty: 90 RF: 0 Discharge Orders: Discharge ED (Routine); Ordered 10/30/21 Ordered By: Leanne Jacob Referrals: Luis Flynn MD [Primary Care Provider] - Activity Restrictions/Additional Instructions: As we discussed you may take your current prescription of baclofen as directed in addition to the anti-inflammatories and steroids given to you today. As we discussed please contact the pain management clinic if you wish to schedule a follow-up visit for further evaluation and treatment if pain persists. If you need another referral due to length of time between your last visit please contact your primary care provider who can help assist you with this. Coding Level of Care Code ED Buffing Wheel Inspector for Nitish Fwd Exam Detailed
[2021-10-30 13:59] VITALS: BP 146/85; PULSE 66; RESP 18; O2SAT 98
[2021-10-30] MEDS: dexamethasone 10 mg/mL INJ 8 MG IM (14:07)
[2021-10-30] MEDS: ketorolac 60 mg/2 mL INJ IM (14:09)
[2021-10-30] MEDS: orphenadrine 30 mg/mL Inj 2 mL 60 MG IM (14:11)
[2021-10-30 14:20] VITALS: PULSE 62
[2021-10-30 15:10] VITALS: BP 148/84; PULSE 62; RESP 18; O2SAT 98
== END 2021-10-30 15:10 | disposition home or self-care (01) ==
PROVIDERS: Emergency Provider Physician Assistant; PCP Internal Medicine
DX: M54.31 Sciatica, right side (principal)
CPT/HCPCS: 96372; 99283; J1100; J1885; J2360

== ENCOUNTER → 2021-11-01 07:25 | Outpatient (BNVA) | payer MEDICARE, SELFPAY | PROVIDERS: PCP Internal Medicine; Visit Provider Nurse Practitioner | DX: F33.2 Major depressive disorder, recurrent severe without psychotic features (principal); F40.10 Social phobia, unspecified | CPT/HCPCS: 99214 ==

== ENCOUNTER → 2021-11-05 08:41 | Outpatient (BNVA) | payer MEDICARE, SELFPAY | PROVIDERS: PCP Internal Medicine; Visit Provider Anesthesiology Pain Medicine | DX: M48.061 Spinal stenosis, lumbar region without neurogenic claudication (principal); M51.36 Other intervertebral disc degeneration, lumbar region; M51.16 Intervertebral disc disorders with radiculopathy, lumbar region; M46.00 Spinal enthesopathy, site unspecified; M79.604 Pain in right leg | CPT/HCPCS: 99214 ==

== ENCOUNTER → 2021-11-06 10:05 | Outpatient (BNVA) | payer MEDICARE, SELFPAY | PROVIDERS: PCP Internal Medicine; Visit Provider Specialist | DX: M54.31 Sciatica, right side (principal); R41.840 Attention and concentration deficit; G40.109 Localization-related (focal) (partial) symptomatic epilepsy and epileptic syndromes with simple partial seizures, not intractable, without status epilepticus | CPT/HCPCS: 20550; 20552; 99214; J3490 ==

== ENCOUNTER → 2021-11-26 12:23 | Outpatient (BNVA) | payer MEDICARE, SELFPAY | PROVIDERS: PCP Internal Medicine; Visit Provider Anesthesiology Pain Medicine | DX: M54.16 Radiculopathy, lumbar region (principal) | CPT/HCPCS: 64483; 64484; J1100; J3490 ==

== ENCOUNTER → 2021-12-11 10:56 | Outpatient (BNVA) | payer MEDICARE, SELFPAY | PROVIDERS: PCP Internal Medicine; Visit Provider Anesthesiology Pain Medicine | DX: M48.061 Spinal stenosis, lumbar region without neurogenic claudication (principal); M51.36 Other intervertebral disc degeneration, lumbar region; M51.16 Intervertebral disc disorders with radiculopathy, lumbar region; M46.00 Spinal enthesopathy, site unspecified; M79.604 Pain in right leg | CPT/HCPCS: 99213 ==

== ENCOUNTER → 2022-03-11 09:20 | Outpatient (BNVA) | payer MEDICARE, SELFPAY | PROVIDERS: PCP Internal Medicine; Visit Provider Specialist | DX: G40.109 Localization-related (focal) (partial) symptomatic epilepsy and epileptic syndromes with simple partial seizures, not intractable, without status epilepticus (principal); R41.840 Attention and concentration deficit; M54.9 Dorsalgia, unspecified | CPT/HCPCS: 99213; 99214 ==

== ENCOUNTER → 2022-06-25 12:53 | Outpatient (BNVA) | payer MEDICARE, SELFPAY | PROVIDERS: PCP Internal Medicine; Visit Provider Specialist | DX: G40.109 Localization-related (focal) (partial) symptomatic epilepsy and epileptic syndromes with simple partial seizures, not intractable, without status epilepticus (principal); G40.309 Generalized idiopathic epilepsy and epileptic syndromes, not intractable, without status epilepticus | CPT/HCPCS: 99213 ==

== ENCOUNTER → 2022-11-05 09:02 | Outpatient (BNVA) | payer MEDICARE, SELFPAY | PROVIDERS: PCP Internal Medicine; Visit Provider Specialist | DX: G93.40 Encephalopathy, unspecified (principal); F33.2 Major depressive disorder, recurrent severe without psychotic features; G40.109 Localization-related (focal) (partial) symptomatic epilepsy and epileptic syndromes with simple partial seizures, not intractable, without status epilepticus; Z51.81 Encounter for therapeutic drug level monitoring; G47.33 Obstructive sleep apnea (adult) (pediatric) | CPT/HCPCS: 96116; 99215 ==

== ENCOUNTER → 2023-01-07 10:11 | Outpatient (BNVA) | payer MEDICARE, SELFPAY | PROVIDERS: PCP Internal Medicine; Visit Provider Specialist | DX: G93.40 Encephalopathy, unspecified (principal); G40.109 Localization-related (focal) (partial) symptomatic epilepsy and epileptic syndromes with simple partial seizures, not intractable, without status epilepticus; G40.409 Other generalized epilepsy and epileptic syndromes, not intractable, without status epilepticus | CPT/HCPCS: 36415; 80175; 99214 ==

== ENCOUNTER → 2023-01-13 09:20 | Outpatient (BNVA) | payer MEDICARE, SELFPAY | PROVIDERS: PCP Family Medicine; Visit Provider Family Medicine | DX: G40.109 Localization-related (focal) (partial) symptomatic epilepsy and epileptic syndromes with simple partial seizures, not intractable, without status epilepticus (principal); G93.40 Encephalopathy, unspecified; F40.10 Social phobia, unspecified; F33.2 Major depressive disorder, recurrent severe without psychotic features; G47.33 Obstructive sleep apnea (adult) (pediatric) | CPT/HCPCS: 80053; 80299; 85025 ==

== ENCOUNTER 2023-01-14 07:54 | Outpatient (CLI) | payer MEDICARE, SELFPAY ==
--- NOTE | 2023-01-14 08:32 | MR_ITS ---
WS: [id number] MRI HEAD WITHOUT CONTRAST TECHNIQUE: Sagittal T1, T2 axial, T2 axial FLAIR, axial and coronal T1 images, axial susceptibility w eighted imaging, axial diffusion weighted images, and coronal T2 images were obtained. 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 COMPARISON: MRI 2012. CT 2020 FINDINGS: No evidence of restricted diffusion to suggest acute ischemia. Moderate small vessel changes with mod erate parenchymal volume loss. Prior postoperative changes LEFT frontal parietal and temporal craniot marcial. Prior remote tumor resection LEFT anterior temporal lobe with associated encephalomalacia and gl iosis. Small amount of associated hemosiderin. Ex vacuo dilatation LEFT lateral ventricle. Resection cavity is stable in appearance compared to 2013. No evidence of increasing edema or mass effect. Gado linium not administered. Chronic focus of hemosiderin in the LEFT cerebellar peduncle. Moderate atrophy RIGHT temporal lobe an d hippocampal formation. Normal optic chiasm and pituitary infundibulum. Normal posterior fossa. Norm al vascular flow voids at the skull base. No extra-axial fluid collections. Paranasal sinuses and mas toid air cells are well aerated. Normal posterior nasopharynx and parapharyngeal fat. IMPRESSION: 1. No evidence of restricted diffusion to suggest acute ischemia. 2. Prior postoperative changes LEFT anterior temporal lobe with tumor resection. Associated encephal omalacia and gliosis. This appears unchanged since 2013 3. Moderate small vessel changes with moderate parenchymal volume loss progressed compared to 2013. 4. Chronic hemosiderin in the LEFT cerebellar peduncle. 5. Moderate atrophy RIGHT temporal lobe and hippocampal formation.
== END 2023-01-14 07:55 | disposition home or self-care (01) ==
PROVIDERS: PCP Family Medicine; Visit Provider Specialist
DX: G40.109 Localization-related (focal) (partial) symptomatic epilepsy and epileptic syndromes with simple partial seizures, not intractable, without status epilepticus (principal); G93.40 Encephalopathy, unspecified
CPT/HCPCS: 70551

== ENCOUNTER 2023-02-20 13:41 | Emergency (ER) | payer MEDICARE, SELFPAY ==
[2023-02-20 13:48] VITALS: BP 125/82; PULSE 78; RESP 16; TEMP 36.4; O2SAT 99
--- NOTE | 2023-02-20 14:17 | CT_ITS ---
WS: [id number] CT FACIAL BONES HISTORY: fall with injury to right side of face TECHNIQUE: Images obtained from the supraorbital location through the mandible. Soft tissue and bone windows are reviewed. Coronal and sagittal reformats have also been submitted. DLP: 2171.[address] scans at [facility] use at least one of these dose optimization techniques: automated e xposure control; mA and/or kV adjustment per patient size (includes targeted exams where dose is matc hed to clinical indication); or iterative reconstruction. COMPARISON: None available. Very minimal deformity of the distal RIGHT nasal bone. No overlying soft tissue edema. Indeterminate for acute fracture. No zygomatic arch fracture. No air-fluid levels within the sinuses. The mandible and maxilla are negative. Soft tissue laceration over the RIGHT frontal bone. There is a small amount of air in the soft tissue hematoma. The underlying bone is normal. No orbital globe abnormality. CT/CT facial bones wo con* [id number] IMPRESSION: No acute facial bone fractures. Age-indeterminate but probably remote minimal fracture involving the distal RIG HT nasal bone.
--- NOTE | 2023-02-20 14:17 | CT_ITS ---
WS: [id number] CT CERVICAL SPINE HISTORY: fall with neck pain TECHNIQUE: Contiguous 2.0 mm axial imaging performed through the entire cervical spine. Sagittal and coronal reformats also performed. All CT scans at [facility] use at least one of these dose o ptimization techniques: automated exposure control; mA and/or kV adjustment per patient size (include s targeted exams where dose is matched to clinical indication); or iterative reconstruction. DLP: 2171.95 mGy.cm COMPARISON: None available. Normal cervical alignment. Craniocervical junction, atlantodental interval and C1-C2 alignment is nor mal. C2-C3: Normal. C3-C4: Small central disc protrusion. C4-C5: Normal. C5-C6: Mild osteophytic ridging. C6-C7: Mild osteophytic ridging. C7-T1: Normal. Soft tissues are normal. Lung apices are clear. CT/CT cervical spin wo con* [id number] IMPRESSION: No acute cervical spine fracture.
--- NOTE | 2023-02-20 14:17 | CT_ITS ---
WS: [id number] CT HEAD NONCONTRAST HISTORY: fall with head injury TECHNIQUE: Contiguous axial imaging performed through the brain in 2.5 mm imaging. Bone and soft tiss ue windows. Sagittal and coronal reformats reviewed. All CT scans at [facility] use at least one of these dose optimization techniques: automated exposure control; mA and/or kV adjustment per pa tient size (includes targeted exams where dose is matched to clinical indication); or iterative recon struction. DLP: 2171.95 mGy.cm COMPARISON: 01/05/2021 No acute intracranial hemorrhage, midline shift or mass effect. Atrophy and encephalomalacia LEFT temporal lobe from prior tumor resection. Postoperative cavity and resection site is stable. Mild ex vacuole dilatation of the adjacent LEFT lateral ventricle. Ventricles: Extra-axial dilatation LEFT lateral ventricle. No intraventricular blood. No inferior displacement of cerebellar tonsils. Paranasal sinuses: As visualized are clear. Mastoid air cells: Well pneumatized. Calvarium and scalp: Extensive craniotomy site involving the LEFT frontal, temporal and parietal bone s. Postoperative changes are similar to the prior study. CT/CT head wo con* [id number] IMPRESSION: 1. No acute intracranial hemorrhage or edema. 2. Post operative resection site LEFT temporal lobe with encephalomalacia stab le. 3. Large craniotomy site involving the LEFT frontal, parietal and temporal lob es is also stable. No acute interval change.
--- NOTE | 2023-02-20 14:20 | W.ED.WOUNDLC ---
HPI - Wound/Laceration General: Chief Complaint: Wound/Laceration Stated Complaint: fall/head lac/dizziness Time Seen by Provider: 02/20/23 14:01 History of Present Illness: Patient is a 58-year-old male who comes to the ED after fall. Past medical history of epilepsy and is on lamotrigine and lacosamide patient says he woke up this morning and started moving around and felt dizzy. He had multiple falls this morning but denies any loss of consciousness. Denies any shortness of breath or chest pain preceding symptoms. He was able to get himself back up after his multiple falls. He is unsure but thinks he might of had a seizure as well during one of his falls. He did have an episode of emesis after fall. He has a long large laceration above right eyebrow. He says his dizziness is a chronic problem that he has had and has had multiple falls in the past due to it. Denies any vision changes, numbness or tingling to face or extremities or any weakness to 1 side of his body. Associated symptoms: Denies chills, fever(s), nausea or vomiting Review of Systems Const: Denies: fever(s), chills or fatigue Eyes: Denies: change in vision or eye discomfort ENMT: Denies: throat pain, odynophagia, nasal discharge or nasal congestion Card: Denies: chest pain, palpitations, edema, swelling of feet/ankles, dyspnea on exertion or orthopnea Resp: Denies: dyspnea, productive cough or non-productive cough GI: Denies: abdominal pain, nausea, vomiting, diarrhea, constipation or hematochezia : Denies: flank pain, difficulty urinating, dysuria or hematuria Musc: Denies: neck pain, back pain or extremity swelling Skin/Breast: Reports: new lesions (Laceration above right eyebrow); Denies: rash Neuro: Reports: frequent falls and dizziness; Denies: headache(s), numbness in extremities or weakness in extremities PFS ED PFSH: Medical History (Updated 02/20/23 @ 16:17 by ERIC Mitchell) Major depressive disorder, recurrent severe without psychotic features Major depressive disorder, recurrent, mild Psychiatric care Social anxiety disorder Social phobia, unspecified Toxic confusional state Surgical History (Updated 01/13/23 @ 08:44 by Cornelio Brothers MD) H/O brain surgery 1976 FIRST OF 8 SURGERIES Family History (Updated 01/13/23 @ 08:37 by Kailyn Huntley LPN) Mother No problems noted. Father , UNKNOWN AGE Alcoholism Other Diabetes Denies family history of CAD (coronary artery disease) Clotting disorder Dementia Hyperlipidemia Psychiatric illness Chronic kidney disease (CKD) Anesthesia complication Bleeding disorder Lung disease Cancer Hypertension Stroke Social History (Updated 01/13/23 @ 08:38 by Kailyn Huntley LPN) Smoking and tobacco status: never smoked Alcohol intake: never Lives independently: Yes Marital status: Single Current occupational status: employed Current occupation: [employer] Current gender identity: Male Special janneth needs: No Physical Exam Const: COMMON NORMALS: no acute distress, patient oriented x3 and alert GENERAL APPEARANCE: cooperative HENMT: COMMON NORMALS: normocephalic HEAD & SCALP: normocephalic and laceration right frontal Details of head laceration: linear and superficial; not actively bleeding and not pulsatile bleeding Head laceration size: 4.5 cm MOUTH: Normal oral and palatal mucosa present THROAT: posterior oropharynx normal and uvula midline Neck/C-Spine: COMMON NORMALS: supple GENERAL: Yes normal visual inspection CERVICAL SPINE: Yes Cervical spine tenderness C5, C6 and C7 and Yes Paracervical muscle tenderness bilateral Resp: COMMON NORMALS: normal respiratory effort, No retractions, No use of accessory muscles and clear to auscultation bilaterally AUSCULTATION: clear to auscultation bilaterally Cardio: COMMON NORMALS: regular rate, regular rhythm, S1 normal heart sound present, S2 normal heart sound present, No gallops present (Cardio), No clicks present (Cardio), No murmurs present (Cardio) and Peripheral pulses 2+ throughout RATE: regular rate RHYTHM: regular rhythm HEART SOUNDS: S1 normal heart sound present and S2 normal heart sound present PERIPHERAL PULSES: Peripheral pulses 2+ throughout GI: COMMON NORMALS: Normal to inspection, nondistended, normoactive bowel sounds present, Soft to palpation, non-tender and no masses PALPATION: Yes Soft to palpation : COMMON NORMALS: Yes no CVA tenderness BLADDER/KIDNEY EXAM: Yes no CVA tenderness Back/Pelvis: COMMON NORMALS: no CVA tenderness Extremity: COMMON NORMALS: normal to inspection Neuro: COMMON NORMALS: patient oriented x3, CN's II-XII intact bilaterally, moves all extremities and no focal motor deficits SENSORIUM/ORIENTATION: Yes alert GAIT: Yes Normal gait present Skin: GENERAL SKIN EXAM: dry skin Procedures Laceration Laceration 1: Site: scalp (Right forehead above eyebrow) Side (If applicable): right Size (cm): 4.5 Description: linear and clean Depth: simple, single layer Local Anesthetic: lidocaine 1% and with epi Amount of anesthesia used (mL): 5 Pre-repair: irrigated extensively (With normal saline) Skin layer closed with: nylon Size (cm): 5-0 Number of sutures: 7 Technique: simple, interrupted Course Vital Signs: Vital signs: Vital Signs Temperature 97.6 F 02/20/23 13:48 Pulse Rate 73 02/20/23 16:54 Respiratory Rate 16 02/20/23 16:54 Blood Pressure 122/76 02/20/23 16:54 Pulse Oximetry 99 02/20/23 16:54 Oxygen Delivery Me thod 02/20/23 13:48 MDM - Wound/Laceration Medical Decision Making Patient is a 58-year-old male comes to the ED with head injury after fall. Patient has history of seizures and has been dealing with some chronic dizziness and balance issues. Today he fell in his house and his head hit a coffee table he has a laceration above his right eyebrow. Vitals are stable. Patient has a linear superficial 4.5 cm laceration on right forehead just above eyebrow. He has some cervical spine and paracervical muscle tenderness. Neuro exam shows no deficits. Patient was given updated tetanus here in the ED. Nurse irrigated laceration extensively with normal saline. Lidocaine 1% with epi was used as local and 7 sutures were placed to close laceration. CBC and CMP were unremarkable. EKG showed normal sinus rhythm and no other acute findings noted. Patient was diagnosed with forehead laceration and was told how to care for wound while it heals. Have laceration reevaluated and have sutures removed in about 5 days. Return ED precautions given. Patient understood and agreed with plan. Lab Data I reviewed the patient's lab results. 02/20/23 14:36 02/20/23 14:36 Radiology Impressions Cervical Spine CT 02/20/23 14:17 IMPRESSION: No acute cervical spine fracture. Face CT 02/20/23 14:17 IMPRESSION: No acute facial bone fractures. Age-indeterminate but probably remote minimal fracture involving the distal RIGHT nasal bone. Head CT 02/20/23 14:17 IMPRESSION: 1. No acute intracranial hemorrhage or edema. 2. Post operative resection site LEFT temporal lobe with encephalomalacia stable. 3. Large craniotomy site involving the LEFT frontal, parietal and temporal lobes is also stable. No acute interval change. Laboratory Results WBC 12.2 10^3/uL (4.0-10.0) H 02/20/23 14:36 RBC 5.12 10^6/uL (4.1-5.3) 02/20/23 14:36 Hgb 15.8 g/dL (11.7-16.6) 02/20/23 14:36 Hct 46.5 % (42.0-52.0) 02/20/23 14:36 MCV 90.8 fl (80-94) 02/20/23 14:36 MCH 30.9 pg (28.0-34.0) 02/20/23 14:36 MCHC 34.0 g/dL (30.0-36.0) 02/20/23 14:36 RDW 12.7 % (12.1-15.1) 02/20/23 14:36 Plt Count 212 10^3/cmm (130-400) 02/20/23 14:36 MPV 8.7 fL (7.4-10.4) 02/20/23 14:36 Neut % (Auto) 85.6 % 02/20/23 14:36 Lymph % (Auto) 6.9 % 02/20/23 14:36 Bullock % (Auto) 6.4 % 02/20/23 14:36 Eos % (Auto) 0.4 % 02/20/23 14:36 Baso % (Auto) 0.4 % 02/20/23 14:36 Neut # (Auto) 10.39 10^3/uL (1.8-7.7) H 02/20/23 14:36 Lymph # (Auto) 0.8 10^3/uL (0.8-4.8) 02/20/23 14:36 Bullock # (Auto) 0.8 10^3/uL (0.2-0.9) 02/20/23 14:36 Eos # (Auto) 0.1 10^3/uL (0.0-0.8) 02/20/23 14:36 Baso # (Auto) 0.1 10^3/uL (0.0-0.1) 02/20/23 14:36 Nucleated RBC % (auto) 0 % 02/20/23 14:36 Nucleated RBCs # 0.0 /100WBC 02/20/23 14:36 Sodium 139 mmol/L (136-145) 02/20/23 14:36 Potassium 4.0 mmol/L (3.5-5.1) 02/20/23 14:36 Chloride 100 mmol/L (98-107) 02/20/23 14:36 Carbon Dioxide 27 mmol/L (22-29) 02/20/23 14:36 Anion Gap 16.0 (5-19) 02/20/23 14:36 BUN 14 mg/dL (6-20) 02/20/23 14:36 Creatinine 0.9 mg/dL (0.7-1.2) 02/20/23 14:36 GFR Calculation 87.0 mL/min (90-130) L 02/20/23 14:36 Glucose 113 mg/dL (65-115) 02/20/23 14:36 Calculated Osmolality 289 mOsm/kg (285-295) 02/20/23 14:36 Calcium 9.2 mg/dL (8.5-10.5) 02/20/23 14:36 Total Bilirubin 0.4 mg/dL (0.15-1.2) 02/20/23 14:36 AST 25 U/L (0-40) 02/20/23 14:36 ALT 15 U/L (0-41) 02/20/23 14:36 Alkaline Phosphatase 89 U/L (40-130) 02/20/23 14:36 Total Protein 7.2 g/dL (6.6-8.7) 02/20/23 14:36 Albumin 4.4 g/dL (3.5-5.2) 02/20/23 14:36 Globulin 2.8 g/dL (1.3-4.6) 02/20/23 14:36 EKG Data EKG 1: EKG interpretation date: 02/20/23 Interpretation: Normal sinus rhythm, [address] segment elevation or depression seen. Discharge Plan Discharge Patient Disposition: Home Clinical Impression: Forehead laceration Qualifiers: Encounter type: initial encounter Qualified Code(s): S01.81XA - Laceration without foreign body of other part of head, initial encounter Condition: Stable Prescriptions: No Action Lamictal 150 mg tablet 150 mg PO BID@ sertraline 100 mg tablet 150 mg PO DAILY@714 clonazepam 1 mg tablet 1 mg PO BID@ trazodone 100 mg tablet 100 mg PO BEDTIME Abilify 2 mg tablet 2 mg PO BEDTIME@1914 Vimpat 150 mg tablet 300 mg PO BID@ Discharge Orders: Discharge ED (Routine); Ordered 02/20/23 Ordered By: Dom Rice Referrals: Cornelio Brothers MD [Primary Care Provider] - Discharge Diet: Regular Discharge Activity: Increase activity as tolerated Patient Instructions: Facial Laceration (ED) Activity Restrictions/Additional Instructions: Keep laceration site clean and dry daily. Clean daily with soap and water. For the first 1 to 2 days she can apply thin layer of triple antibiotic ointment over wound but after that keep it dry. watch for signs of infection such as redness, warmth, increased tenderness and puslike drainage. If you see the signs of infection return to the ED, urgent care or PCP for reevaluation. call your PCP to schedule a follow-up appointment for reevaluation and suture removal in about 5 days. Continue taking all home meds. Follow discharge plans as discussed. You can return to the ED if symptoms worsen. Coding Level of Care Code ED Jumbo Operator for Nitish Lawrence
[2023-02-20] MEDS: tetanus-dipt-pertussis 0.5 mL SDV IM (14:32)
[2023-02-20] MEDS: lidocaine-epi 1% 20 mL INJ INJECTION (14:38)
--- NOTE | 2023-02-20 14:38 | PC.NURSE ---
lidocaine administered by Zapata
[2023-02-20 14:44] LABS: Basophils # 0.1 10^3/uL (0.0-0.1); Basophils % 0.4 %; Eosinophils # 0.1 10^3/uL (0.0-0.8); Eosinophils % 0.4 %; Hematocrit 46.5 % (42.0-52.0); Hemoglobin 15.8 g/dL (11.7-16.6); Lymphocytes # 0.8 10^3/uL (0.8-4.8); Lymphocytes % 6.9 %; Mean Corpuscular Hemoglobin 30.9 pg (28.0-34.0); Mean Corpuscular Volume 90.8 fl (80-94); Mean Platelet Volume 8.7 fL (7.4-10.4); Monocytes # 0.8 10^3/uL (0.2-0.9); Monocytes % 6.4 %; Neutrophils # 10.39 10^3/uL (1.8-7.7); Neutrophils % 85.6 %; Nucleated Red Blood Cells % 0 %; Platelet Count 212 10^3/cmm (130-400); Red Blood Count 5.12 10^6/uL (4.1-5.3); Red Cell Distribution Width 12.7 % (12.1-15.1); White Blood Count 12.2 10^3/uL (4.0-10.0)
--- NOTE | 2023-02-20 14:44 | PC.PHAR ---
pt states he takes care of his own medications-pt states he is unsure if he took his meds today or not
--- NOTE | 2023-02-20 14:49 | ECG_ITS ---
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 Measurements Intervals [place] Rate: 67 P: 25 FL: 135 QRS: -12 QRSD: 90 T: 0 QT: 352 QTc: 373 Interpretive Statements SINUS RHYTHM NONSPECIFIC T-WAVE ABNORMALITY Compared to ECG 01/05/2021 11:39:39 T-wave abnormality now present Electronically Signed On 02-20-2023 16:31:13 CDT by Hung Elliott M.D. [id number]
[2023-02-20 15:08] LABS: Alanine Aminotransferase 15 U/L (0-41); Albumin Level 4.4 g/dL (3.5-5.2); Alkaline Phosphatase 89 U/L (40-130); Aspartate Amino Transferase 25 U/L (0-40); Blood Urea Nitrogen 14 mg/dL (6-20); Calcium 9.2 mg/dL (8.5-10.5); Carbon Dioxide 27 mmol/L (22-29); Chloride 100 mmol/L (98-107); Creatinine Clr Calc Pharmacy 91.5177; Globulin 2.8 g/dL (1.3-4.6); Glucose 113 mg/dL (65-115); Osmolality Calculated 289 mOsm/kg (285-295); Sodium 139 mmol/L (136-145); Total Bilirubin 0.4 mg/dL (0.15-1.2); Total Protein 7.2 g/dL (6.6-8.7)
[2023-02-20 16:54] VITALS: BP 122/76; PULSE 73; RESP 16; O2SAT 99
== END 2023-02-20 16:55 | disposition home or self-care (01) ==
PROVIDERS: Emergency Provider Physician Assistant; PCP Family Medicine
DX: S01.81XA Laceration without foreign body of other part of head, initial encounter (principal); W19.XXXA Unspecified fall, initial encounter; Z23 Encounter for immunization
CPT/HCPCS: 36415; 70450; 70486; 72125; 80053; 85025; 90471; 90715; 93005; 99285

== ENCOUNTER 2023-02-22 22:33 | Emergency (ER) | payer MEDICARE, SELFPAY ==
--- NOTE | 2023-02-22 22:36 | XRR_ITS ---
PROCEDURE INFORMATION: Exam: XR Chest Exam date and time: 02/22/2023 10:42 PM Age: 58 years old Clinical indication: Other: Dizziness; Additional info: Dizzy TECHNIQUE: Imaging protocol: Radiologic exam of the chest. Views: 1 view. COMPARISON: CR XR chest 2V insp/exp [id number] 01/05/2021 10:43 AM FINDINGS: Lungs: Unremarkable. No consolidation. Pleural spaces: Unremarkable. No pleural effusion. No pneumothorax. Heart/Mediastinum: Unremarkable. No cardiomegaly. Bones/joints: Unremarkable. XR/XR chest 1V portable [id number] IMPRESSION: No acute findings.
[2023-02-22 22:41] VITALS: BP 131/80; PULSE 67; RESP 18; TEMP 36.6; O2SAT 95
--- NOTE | 2023-02-22 22:46 | ECG_ITS ---
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 Measurements Intervals [place] Rate: 60 P: 143 ME: 160 QRS: -4 QRSD: 93 T: 122 QT: 357 QTc: 358 Interpretive Statements SINUS RHYTHM LATERAL MYOCARDIAL INFARCTION , OF INDETERMINATE AGE [40+ ms Q WAVE AND/OR ST/T ABNORMALITY IN I/aVL/V5/V6] Compared to ECG 02/20/2023 14:49:22 Myocardial infarct finding now present T-wave abnormality no longer present Electronically Signed On 02-23-2023 21:58:27 CDT by Zander Phillips M.D. [id number]
--- NOTE | 2023-02-22 22:46 | W.ED.GENADLT ---
HPI - General Adult General: Chief complaint: Altered Mental Status Stated complaint: fell, ams, weak family thinks he took wrong meds Time Seen by Provider: 02/22/23 22:37 Source: patient and family Mode of arrival: ambulatory Limitations: altered mental status History of Present Illness: 58-year-old male has had a history of temporal lobe lobectomy he has had seizures as well since then he is on Lamictal Vimpat he seen here after a fall family states that ever since that fall he has been very confused and weak and has had some slurred speech they state that tonight that found him on the floor he is very weak and cannot walk on his own states that he has had instances in the past where he took too many of his meds he said that his pill box was full but are still concerned he may have took too much of his Lamictal or Vimpat. No witnessed seizures here patient had a very hard time standing and transferring to the bed he is able to answer some my question he told me his name where he lives he is confused on the year he does have slurred speech. He is complained of headache but he did have a pretty significant fall on denies any fevers. Review of Systems General: Reports: ROS unobtainable due to mental status PFS ED PFSH: Medical History Major depressive disorder, recurrent severe without psychotic features Major depressive disorder, recurrent, mild Psychiatric care Social anxiety disorder Social phobia, unspecified Toxic confusional state Surgical History H/O brain surgery 1976 FIRST OF 8 SURGERIES Family History Mother No problems noted. Father , UNKNOWN AGE Alcoholism Other Diabetes Denies family history of CAD (coronary artery disease) Clotting disorder Dementia Hyperlipidemia Psychiatric illness Chronic kidney disease (CKD) Anesthesia complication Bleeding disorder Lung disease Cancer Hypertension Stroke Social History Smoking and tobacco status: never smoked Alcohol intake: never Lives independently: Yes Marital status: Single Current occupational status: employed Current occupation: [employer] Current gender identity: Male Special janneth needs: No Physical Exam Const: COMMON NORMALS: negative for patient oriented x3 GENERAL APPEARANCE: ill appearing HENMT: COMMON NORMALS: normocephalic HEAD & SCALP: normocephalic OTHER: multiple contusions to head and face Eye: COMMON NORMALS: Equal, round and reactive pupils present and EOMs intact bilaterally PUPIL: Yes Equal, round and reactive pupils present Neck/C-Spine: COMMON NORMALS: full ROM and supple Chest: COMMONS NORMALS: normal inspection of the chest and normal palpation of entire chest wall Resp: COMMON NORMALS: normal respiratory effort, No retractions, No use of accessory muscles and clear to auscultation bilaterally AUSCULTATION: clear to auscultation bilaterally Cardio: COMMON NORMALS: regular rate, regular rhythm and No murmurs present (Cardio) RATE: regular rate RHYTHM: regular rhythm GI: COMMON NORMALS: Normal to inspection, nondistended, normoactive bowel sounds present, Soft to palpation, non-tender and no masses PALPATION: Yes Soft to palpation Extremity: COMMON NORMALS: normal to inspection and full ROM Neuro: COMMON NORMALS: moves all extremities; negative for patient oriented x3 OTHER: slurred speech, generalized weakness Psych: COMMON NORMALS: Normal thought process present and cooperative; negative for mental status grossly normal THOUGHT PROCESS: Normal thought process present Skin: COMMON NORMALS: no rashes or lesions noted and no wounds GENERAL SKIN EXAM: no rashes or lesions noted Course Vital Signs: Vital signs: Vital Signs Temperature 97.8 F 02/22/23 22:41 Pulse Rate 68 02/22/23 23:36 Respiratory Rate 14 02/22/23 23:36 Blood Pressure 130/79 02/22/23 23:36 Pulse Oximetry 96 02/22/23 23:36 Oxygen Delivery Me thod 02/22/23 23:36 MDM - General Adult Medical Decision Making Patient presents with altered mental status along with confusion family states he has had multiple falls since she was seen here on CT shows a new subdural along with subarachnoid hemorrhage likely from one of his recent falls patient here is awake he is able to tell me his name where he lives he does have some confusion he has difficulty walking he has had no decline here he does not require intubation he is protecting his own airway spoke to [facility] will transfer there for higher level of care for neurosurgery Lab Data 02/22/23 23:06 02/22/23 23:06 Radiology Impressions Chest X-Ray 02/22/23 22:36 IMPRESSION: No acute findings. Cervical Spine CT 02/22/23 22:56 IMPRESSION: No acute findings. Head CT 02/22/23 23:22 IMPRESSION: 1. 6.5 mm hyperdense lesion adjacent to the anterior superior aspect of the right lateral ventricle body in the frontal lobe aspect concerning for a small area of hemorrhage, new compared to prior exam. Increased density is also seen along the left tentorium new compared to prior exam, perhaps reflecting a small subdural hematoma in this area. 2. Left frontotemporal craniectomy changes with temporal lobe encephalomalacia. 3. Moderate diffuse white matter disease likely reflecting chronic microvascular ischemic changes. 4. Left frontotemporal craniectomy changes with temporal lobe encephalomalacia. THIS REPORT CONTAINS FINDINGS THAT MAY BE CRITICAL TO PATIENT CARE. The findings were verbally communicated via telephone conference with MARGI BORJAS at 12:05 AM CDT on 02/23/2023. The findings were acknowledged and understood. Laboratory Results WBC 6.8 10^3/uL (4.0-10.0) 02/22/23 23: RBC 4.70 10^6/uL (4.1-5.3) 02/22/23 23: Hgb 14.3 g/dL (11.7-16.6) 02/22/23 23: Hct 43.6 % (42.0-52.0) 02/22/23 23: MCV 92.8 fl (80-94) 02/22/23 23: MCH 30.4 pg (28.0-34.0) 02/22/23 23: MCHC 32.8 g/dL (30.0-36.0) 02/22/23 23: RDW 12.7 % (12.1-15.1) 02/22/23 23: Plt Count 199 10^3/cmm (130-400) 02/22/23 23: MPV 9.0 fL (7.4-10.4) 02/22/23 23: Neut % (Auto) 61.7 % 02/22/23 23: Lymph % (Auto) 20.5 % 02/22/23 23: [place] % (Auto) 10.6 % 02/22/23 23:06 Eos % (Auto) 5.6 % 02/22/23 23:06 Baso % (Auto) 1.3 % 02/22/23 23:06 Neut # (Auto) 4.17 10^3/uL (1.8-7.7) 02/22/23 23:06 Lymph # (Auto) 1.4 10^3/uL (0.8-4.8) 02/22/23 23:06 [place] # (Auto) 0.7 10^3/uL (0.2-0.9) 02/22/23 23:06 Eos # (Auto) 0.4 10^3/uL (0.0-0.8) 02/22/23 23:06 Baso # (Auto) 0.1 10^3/uL (0.0-0.1) 02/22/23 23:06 Nucleated RBC % (auto) 0 % 02/22/23 23:06 Nucleated RBCs # 0.0 /100WBC 02/22/23 23:06 PT 12.50 SECONDS (12.1-14.9) 02/22/23 23:06 INR 0.91 (0.8-1.2) 02/22/23 23:06 Specimen Type Arterial 02/22/23 23:32 Sample Site Radial, left 02/22/23 23:32 ABG pH 7.41 (7.35-7.45) 02/22/23 23:32 ABG pCO2 44.1 mmHg (35-45) 02/22/23 23:32 ABG pO2 72.5 mmHg (80.0-100.0) L 02/22/23 23:32 ABG HCO3 28.1 mmol/L (22-26) H 02/22/23 23:32 ABG Base Excess 2.9 mmol/L (-2.0-2.0) H 02/22/23 23:32 Antonio Test Pos 02/22/23 23:32 Hematocrit 43.6 % (42-52) 02/22/23 23:32 O2 Delivery Device None 02/22/23 23:32 FiO2 21.0 % 02/22/23 23:32 Mailing Machine Helper ID [email or web address] 02/22/23 23:32 Sodium 138 mmol/L (136-145) 02/22/23 23:06 Potassium 3.3 mmol/L (3.5-5.1) L 02/22/23 23:06 Chloride 101 mmol/L (98-107) 02/22/23 23:06 Carbon Dioxide 28 mmol/L (22-29) 02/22/23 23:06 Anion Gap 12.3 (5-19) 02/22/23 23:06 BUN 14 mg/dL (6-20) 02/22/23 23:06 Creatinine 1.0 mg/dL (0.7-1.2) 02/22/23 23:06 GFR Calculation 77.0 mL/min (90-130) L 02/22/23 23:06 Glucose 82 mg/dL (65-115) 02/22/23 23:06 POC Glucose 84 mg/dL (70-110) 02/22/23 22:52 Calculated Osmolality 286 mOsm/kg (285-295) 02/22/23 23:06 Lactate 1.0 mmol/L (0.5-2.2) 02/22/23 23:06 Calcium 8.8 mg/dL (8.5-10.5) 02/22/23 23:06 Total Bilirubin 0.4 mg/dL (0.15-1.2) 02/22/23 23:06 AST 34 U/L (0-40) 02/22/23 23:06 ALT 22 U/L (0-41) 02/22/23 23:06 Alkaline Phosphatase 73 U/L (40-130) 02/22/23 23:06 Ammonia 19 umol/L (16-60) 02/22/23 23:26 Total Protein 6.7 g/dL (6.6-8.7) 02/22/23 23:06 Albumin 4.1 g/dL (3.5-5.2) 02/22/23 23:06 Globulin 2.6 g/dL (1.3-4.6) 02/22/23 23:06 TSH 7.40 uIU/mL (0.27-4.20) H 02/22/23 23:06 Ethyl Alcohol < 10 mg/dL (0-10) 02/22/23 23:06 EKG Data EKG 1: I personally reviewed and interpreted this EKG as follows: EKG interpretation date: 02/22/23 EKG interpretation time: 22:46 Interpretation: nsr hr [address] or t wave abnormaliies qrs 93 qtc 358 Computer generated interpretation: Chest X-Ray 02/22/23 22:36 IMPRESSION: No acute findings. Cervical Spine CT 02/22/23 22:56 IMPRESSION: No acute findings. Head CT 02/22/23 23:22 IMPRESSION: 1. 6.5 mm hyperdense lesion adjacent to the anterior superior aspect of the right lateral ventricle body in the frontal lobe aspect concerning for a small area of hemorrhage, new compared to prior exam. Increased density is also seen along the left tentorium new compared to prior exam, perhaps reflecting a small subdural hematoma in this area. 2. Left frontotemporal craniectomy changes with temporal lobe encephalomalacia. 3. Moderate diffuse white matter disease likely reflecting chronic microvascular ischemic changes. 4. Left frontotemporal craniectomy changes with temporal lobe encephalomalacia. THIS REPORT CONTAINS FINDINGS THAT MAY BE CRITICAL TO PATIENT CARE. The findings were verbally communicated via telephone conference with MARGI BORJAS at 12:05 AM CDT on 02/23/2023. The findings were acknowledged and understood. Critical Care Time Critical Care Time: Critical Care Time: Yes Total Critical Care Time: 45 Attestation: The high probability of a clinically significant, sudden or life threatening deterioration of the patient's trauma/neuro system(s) required my full and direct attention, intervention and personal management. The critical care time is as shown. This time is in addition to time spent performing any reported procedures but includes the following: [x] Data and vital sign review and interpretation [x] Patient assessment, examination and intervention [x] Documentation [x] Medication orders and management Discharge Plan Discharge Patient Disposition: Xfer Short-Term Hosp Clinical Impression: Altered mental status, Subarachnoid hemorrhage, Fall, Subdural hematoma Condition: Stable Referrals: Cornelio Brothers MD [Primary Care Provider] - Coding Level of Care Code ED [employer] for Nitish Lawrence
--- NOTE | 2023-02-22 22:56 | CTR_ITS ---
PROCEDURE INFORMATION: Exam: CT Cervical Spine Without Contrast Exam date and time: 02/22/2023 11:09 PM Age: 58 years old Clinical indication: Injury or trauma; Fall; Blunt trauma; Prior surgery; Surgery date: 1-6 months; Surgery type: Brain surgery x8 TECHNIQUE: Imaging protocol: Computed tomography of the cervical spine without contrast. Radiation optimization: All CT scans at this facility use at least one of these dose optimization techniques: automated exposure control; mA and/or kV adjustment per patient size (includes targeted exams where dose is matched to clinical indication); or iterative reconstruction. REPORTING DATA: Count of CT and Cardiac NM exams in prior 12 months: This patient has received 3 known CTs and 0 known cardiac nuclear medicine studies in the 12 months prior to the current study. COMPARISON: CT cervical spin wo con* [id number] 02/20/2023 3:37 PM RADIATION DOSE METRICS: Total DLP (mGy-cm): 190.27 FINDINGS: Bones/joints: No acute fracture. Normal alignment. C2-C3: No significant disc bulge or herniation. No severe spinal canal stenosis. No significant neural foraminal narrowing. C3-C4: No significant disc bulge or herniation. No severe spinal canal stenosis. No significant neural foraminal narrowing. C4-C5: No significant disc bulge or herniation. No severe spinal canal stenosis. No significant neural foraminal narrowing. C5-C6: No significant disc bulge or herniation. No severe spinal canal stenosis. No significant neural foraminal narrowing. C6-C7: No significant disc bulge or herniation. No severe spinal canal stenosis. No significant neural foraminal narrowing. C7-T1: No significant disc bulge or herniation. No severe spinal canal stenosis. No significant neural foraminal narrowing. Lungs: Lung apices are normal. Soft tissues: Unremarkable. CT/CT cervical spin wo con* [id number] IMPRESSION: No acute findings.
[2023-02-22 23:14] LABS: Basophils # 0.1 10^3/uL (0.0-0.1); Basophils % 1.3 %; Eosinophils # 0.4 10^3/uL (0.0-0.8); Eosinophils % 5.6 %; Hematocrit 43.6 % (42.0-52.0); Hemoglobin 14.3 g/dL (11.7-16.6); Lymphocytes # 1.4 10^3/uL (0.8-4.8); Lymphocytes % 20.5 %; Mean Corpuscular HGB Conc 32.8 g/dL (30.0-36.0); Mean Corpuscular Hemoglobin 30.4 pg (28.0-34.0); Mean Corpuscular Volume 92.8 fl (80-94); Monocytes # 0.7 10^3/uL (0.2-0.9); Monocytes % 10.6 %; Neutrophils # 4.17 10^3/uL (1.8-7.7); Neutrophils % 61.7 %; Nucleated Red Blood Cells % 0 %; Platelet Count 199 10^3/cmm (130-400); Red Cell Distribution Width 12.7 % (12.1-15.1); White Blood Count 6.8 10^3/uL (4.0-10.0)
[2023-02-22 23:20] LABS: Glucose Point of Care 84 mg/dL (70-110)
--- NOTE | 2023-02-22 23:22 | CTR_ITS ---
PROCEDURE INFORMATION: Exam: CT Head Without Contrast Exam date and time: 02/22/2023 11:48 PM Age: 58 years old Clinical indication: Injury or trauma; Fall; Blunt trauma (contusions or hematomas); Consciousness not specified; Prior surgery; Surgery date: 1-6 months; Surgery type: Brain surgery x8. Left lobectomy then infection per TECHNIQUE: Imaging protocol: Computed tomography of the head without contrast. Radiation optimization: All CT scans at this facility use at least one of these dose optimization techniques: automated exposure control; mA and/or kV adjustment per patient size (includes targeted exams where dose is matched to clinical indication); or iterative reconstruction. REPORTING DATA: Count of CT and Cardiac NM exams in prior 12 months: This patient has received 4 known CTs and 0 known cardiac nuclear medicine studies in the 12 months prior to the current study. COMPARISON: CT head wo con* [id number] 02/20/2023 3:37 PM RADIATION DOSE METRICS: Total DLP (mGy-cm): 1216.78 FINDINGS: Brain: 6.5 mm hyperdense lesion adjacent to the anterior superior aspect of the right lateral ventricle body in the frontal lobe aspect concerning for a small area of hemorrhage, new compared to prior exam. Increased density is also seen along the left tentorium new compared to prior exam, perhaps reflecting a small subdural hematoma in this area. Moderate diffuse white matter disease likely reflecting chronic microvascular ischemic changes. Left frontotemporal craniectomy changes with temporal lobe encephalomalacia. Cerebral ventricles: No ventriculomegaly. Paranasal sinuses: Visualized sinuses are unremarkable. No fluid levels. Mastoid air cells: Visualized mastoid air cells are well aerated. Bones/joints: See above. Soft tissues: Unremarkable. CT/CT head wo con* [id number] IMPRESSION: 1. 6.5 mm hyperdense lesion adjacent to the anterior superior aspect of the right lateral ventricle body in the frontal lobe aspect concerning for a small area of hemorrhage, new compared to prior exam. Increased density is also seen along the left tentorium new compared to prior exam, perhaps reflecting a small subdural hematoma in this area. 2. Left frontotemporal craniectomy changes with temporal lobe encephalomalacia. 3. Moderate diffuse white matter disease likely reflecting chronic microvascular ischemic changes. 4. Left frontotemporal craniectomy changes with temporal lobe encephalomalacia. THIS REPORT CONTAINS FINDINGS THAT MAY BE CRITICAL TO PATIENT CARE. The findings were verbally communicated via telephone conference with MARGI BORJAS at 12:05 AM CDT on 02/23/2023. The findings were acknowledged and understood.
[2023-02-22 23:26] LABS: INR 0.91 (0.8-1.2)
[2023-02-22 23:36] VITALS: BP 130/79; PULSE 68; RESP 14; O2SAT 96
[2023-02-22 23:42] LABS: ABG PCO2 44.1 mmHg (35-45); ABG PH Result 7.41 (7.35-7.45); Arterial Blood Gas Hematocrit 43.6 % (42-52); Base Excess ABG 2.9 mmol/L (-2.0-2.0); Blood Gas Allen Test Pos; Blood Gas Sample Site Radial, left; Blood Gas Sample Type Arterial; HCO3 ABG 28.1 mmol/L (22-26); PO2 ABG 72.5 mmHg (80.0-100.0)
[2023-02-22 23:44] LABS: Ammonia 19 umol/L (16-60)
[2023-02-22 23:45] LABS: Alanine Aminotransferase 22 U/L (0-41); Albumin Level 4.1 g/dL (3.5-5.2); Alkaline Phosphatase 73 U/L (40-130); Anion Gap 12.3 (5-19); Aspartate Amino Transferase 34 U/L (0-40); Blood Urea Nitrogen 14 mg/dL (6-20); Calcium 8.8 mg/dL (8.5-10.5); Carbon Dioxide 28 mmol/L (22-29); Chloride 101 mmol/L (98-107); Globulin 2.6 g/dL (1.3-4.6); Glucose 82 mg/dL (65-115); Osmolality Calculated 286 mOsm/kg (285-295); Potassium 3.3 mmol/L (3.5-5.1); Sodium 138 mmol/L (136-145); Total Bilirubin 0.4 mg/dL (0.15-1.2); Total Protein 6.7 g/dL (6.6-8.7)
[2023-02-22 23:52] LABS: Alcohol Level < 10 mg/dL (0-10)
[2023-02-23 00:45] VITALS: BP 134/88; PULSE 67; RESP 16; O2SAT 96
[2023-02-23 00:58] LABS: Add Urine Microscopic? YES; Bilirubin Urine Neg (Negative); Blood Urine 2+ (Negative); Glucose Urine UA 2+ (Normal); Ketones Urine 1+ (Negative); Leukocyte Esterase Urine Negative (Negative); Nitrate Urine Negative (Negative); Protein Urine Neg (Negative); Urine Appearance Clear (CLEAR); Urine Color Dark Yellow (Yellow); Urobilinogen Urine Norm (Negative); pH Urine 5 (5-7)
[2023-02-23 01:00] LABS: Mucus Urine 2+ /hpf; RBC Urine 0-4 /hpf (0-2); Squamous Epithelial Cell Urine 0-4 /hpf (0-5)
[2023-02-23 01:01] LABS: Amorphous Sediment Urine TRACE /hpf; Sperm Urine 1+ /hpf
[2023-02-23 01:02] LABS: Bacteria Urine TRACE /hpf
[2023-02-23 01:05] LABS: Amphetamines Screen Urine Negative (Negative); Barbiturates Screen Urine Negative (Negative); Benzodiazepines Screen Urine Positive (Negative); Cocaine Screen Urine Negative (Negative); Opiate Screen Urine Negative (Negative); PCP Screen Urine Negative (Negative); THC Screen Urine Negative (Negative)
[2023-02-23 01:15] VITALS: BP 129/84; PULSE 62; O2SAT 100
[2023-02-23] MEDS: ondansetron 2 mg/ML SDV 2 mL 4 MG IVP (01:30)
[2023-02-23] MEDS: morphine 4 mg/mL SDV 1 mL IVP (01:30)
[2023-03-01 08:28] LABS: Lamotrigine (Lamictal) Level 9.8 mcg/mL (2.5-15.0)
[2023-08-13 15:08] LABS: Lacosamide (Vimpat) 25.6
== END 2023-02-23 01:48 | disposition short-term general hospital (02) ==
PROVIDERS: Emergency Provider Emergency Medicine; PCP Family Medicine
DX: R41.82 Altered mental status, unspecified (principal); S06.5XAA Traumatic subdural hemorrhage with loss of consciousness status unknown, initial encounter; S06.6XAA Traumatic subarachnoid hemorrhage with loss of consciousness status unknown, initial encounter; Q04.3 Other reduction deformities of brain; W19.XXXA Unspecified fall, initial encounter
CPT/HCPCS: 36415; 36416; 36600; 70450; 71045; 72125; 80053; 80175; 80299; 80306; 80307; 81001; 82140; 82803; 82962; 83605; 84443; 85025; 85610; 93005; 96374; 96375; 99285; J2270; J2405

== ENCOUNTER → 2023-03-14 07:56 | Outpatient (BNVA) | payer MEDICARE, SELFPAY | PROVIDERS: PCP Family Medicine; Visit Provider Specialist | DX: G40.109 Localization-related (focal) (partial) symptomatic epilepsy and epileptic syndromes with simple partial seizures, not intractable, without status epilepticus (principal); G40.409 Other generalized epilepsy and epileptic syndromes, not intractable, without status epilepticus; R26.89 Other abnormalities of gait and mobility; S09.90XS Unspecified injury of head, sequela; X58.XXXS Exposure to other specified factors, sequela; G93.40 Encephalopathy, unspecified | CPT/HCPCS: 99215 ==

== ENCOUNTER 2023-04-04 11:20 | Emergency (ER) | payer MEDICARE, SELFPAY ==
[2023-04-04 11:35] VITALS: BP 138/77; PULSE 73; RESP 14; TEMP 36.8; O2SAT 98; BMI 24.3
[2023-04-04 13:22] LABS: Basophils # 0.1 10^3/uL (0.0-0.1); Basophils % 1.2 %; Eosinophils # 0.3 10^3/uL (0.0-0.8); Hematocrit 50.1 % (42.0-52.0); Hemoglobin 16.5 g/dL (11.7-16.6); Lymphocytes # 1.2 10^3/uL (0.8-4.8); Lymphocytes % 16.8 %; Mean Corpuscular HGB Conc 32.9 g/dL (30.0-36.0); Mean Corpuscular Hemoglobin 30.6 pg (28.0-34.0); Mean Corpuscular Volume 92.9 fl (80-94); Mean Platelet Volume 8.7 fL (7.4-10.4); Monocytes # 0.7 10^3/uL (0.2-0.9); Neutrophils # 4.95 10^3/uL (1.8-7.7); Neutrophils % 67.5 %; Nucleated Red Blood Cells % 0 %; Platelet Count 221 10^3/cmm (130-400); Red Blood Count 5.39 10^6/uL (4.1-5.3); Red Cell Distribution Width 13.7 % (12.1-15.1); White Blood Count 7.3 10^3/uL (4.0-10.0)
--- NOTE | 2023-04-04 13:55 | ED_ITS ---
HPI - Dizziness General: Chief Complaint: Dizziness Stated Complaint: Dizziness, Weakness Time Seen by Provider: 04/04/23 13:20 Source: patient Mode of arrival: ambulatory History of Present Illness: HPI Narrative: 58-year-old male with a history of frontal lobe injury. He also has a history of seizures. He comes in today complaining of dizziness confusion he has some mild onset dementia. The majority history is taken from previous neurology notes and discussion with Dr. Martinez. Patient is not really able to answer many questions however discussing Dr. Martinez that is his typical presentat ion. I did later discussed with his sister who is been trying to care for him and get him into a long-term arrangement. She is out of town they were not aware he was in the emergency room they have a son who is able to come and help him today see the notes below. Patient denies any chest pain or shortness of breath or any recent injury. According to notes the dizziness is chronic. MD elicited complaint: dizziness Associated symptoms: Denies chest pain, chills, nausea, palpitations or vomiting Review of Systems Const: Denies: fever(s) or chills Eyes: Denies: change in vision or blurry vision Card: Denies: chest pain or palpitations Resp: Denies: dyspnea, productive cough or non-productive cough GI: Denies: abdominal pain, nausea or vomiting : Denies: dysuria, urinary frequency or urinary urgency Musc: Denies: neck pain or back pain PFS ED PFSH: Medical History Major depressive disorder, recurrent severe without psychotic features Major depressive disorder, recurrent, mild Psychiatric care Social anxiety disorder Social phobia, unspecified Toxic confusional state Surgical History H/O brain surgery 1976 FIRST OF 8 SURGERIES Family History Mother No problems noted. Father , UNKNOWN AGE Alcoholism Other Diabetes Denies family history of CAD (coronary artery disease) Clotting disorder Dementia Hyperlipidemia Psychiatric illness Chronic kidney disease (CKD) Anesthesia complication Bleeding disorder Lung disease Cancer Hypertension Stroke Social History Smoking and tobacco status: never smoked Alcohol intake: never Substance/Drug Use: never Lives independently: Yes Marital status: Single Current occupational status: employed Current occupation: [employer] Current gender identity: Male Special janneth needs: No Physical Exam Const: GENERAL APPEARANCE: cooperative and comfortable ORIENTATION/CONSCIOUSNESS: Yes awake and Yes oriented to time HENMT: COMMON NORMALS: normocephalic, atraumatic and hearing grossly normal bilaterally HEAD & SCALP: normocephalic and atraumatic Resp: COMMON NORMALS: normal respiratory effort, No retractions, No use of accessory muscles and clear to auscultation bilaterally AUSCULTATION: clear to auscultation bilaterally Cardio: COMMON NORMALS: regular rate, regular rhythm and No murmurs present (Cardio) RATE: regular rate RHYTHM: regular rhythm GI: COMMON NORMALS: Soft to palpation and No hepatosplenomegaly present AUSCULTATION: Yes normoactive bowel sounds PALPATION: Yes Soft to palpation, No Tenderness to palpation present (GI), No Guarding due to palpation present (GI) and Yes No hepatosplenomegaly present Extremity: COMMON NORMALS: normal to inspection, capillary refill normal, no clubbing, cyanosis or edema, no calf tenderness and no pedal edema Neuro: SENSORIUM/ORIENTATION: Yes oriented to time Skin: COMMON NORMALS: no rashes or lesions noted GENERAL SKIN EXAM: no rashes or lesions noted Course Vital Signs: Vital signs: Vital Signs Temperature 98.2 F 04/04/23 11:35 Pulse Rate 72 04/04/23 15:38 Respiratory Rate 16 04/04/23 15:38 Blood Pressure 127/89 04/04/23 15:38 Pulse Oximetry 99 04/04/23 15:38 Oxygen Delivery Me thod Room Air 04/04/23 11:35 MDM - Dizziness Medical Decision Making No focal neurologic deficits are noted. Patient does not have any acute stroke signs or symptoms. Discussed Dr. Martinez she did not feel any further work-up was necessary she did asked that we get appropriate drug levels on the patient so she can verify he has been taking his medications regularly. Family stated they are relatively certain he has been following his medication regimen. Otherwise he appears to be at his baseline we will discharge him home and follow-up with Dr. Martinez next week. The nephew came to take the patient home and he will be with the patient through the weekend. Lab Data 04/04/23 13:15 04/04/23 13:15 Laboratory Results WBC 7.3 10^3/uL (4.0-10.0) 04/04/23 13:15 RBC 5.39 10^6/uL (4.1-5.3) H 04/04/23 13:15 Hgb 16.5 g/dL (11.7-16.6) 04/04/23 13:15 Hct 50.1 % (42.0-52.0) 04/04/23 13:15 MCV 92.9 fl (80-94) 04/04/23 13:15 MCH 30.6 pg (28.0-34.0) 04/04/23 13:15 MCHC 32.9 g/dL (30.0-36.0) 04/04/23 13:15 RDW 13.7 % (12.1-15.1) 04/04/23 13:15 Plt Count 221 10^3/cmm (130-400) 04/04/23 13:15 MPV 8.7 fL (7.4-10.4) 04/04/23 13:15 Neut % (Auto) 67.5 % 04/04/23 13:15 Lymph % (Auto) 16.8 % 04/04/23 13:15 [place] % (Auto) 10.0 % 04/04/23 13:15 Eos % (Auto) 4.0 % 04/04/23 13:15 Baso % (Auto) 1.2 % 04/04/23 13:15 Neut # (Auto) 4.95 10^3/uL (1.8-7.7) 04/04/23 13:15 Lymph # (Auto) 1.2 10^3/uL (0.8-4.8) 04/04/23 13:15 [place] # (Auto) 0.7 10^3/uL (0.2-0.9) 04/04/23 13:15 Eos # (Auto) 0.3 10^3/uL (0.0-0.8) 04/04/23 13:15 Baso # (Auto) 0.1 10^3/uL (0.0-0.1) 04/04/23 13:15 Nucleated RBC % (auto) 0 % 04/04/23 13:15 Nucleated RBCs # 0.0 /100WBC 04/04/23 13:15 Sodium 140 mmol/L (136-145) 04/04/23 13:15 Potassium 4.2 mmol/L (3.5-5.1) 04/04/23 13:15 Chloride 106 mmol/L (98-107) 04/04/23 13:15 Carbon Dioxide 23 mmol/L (22-29) 04/04/23 13:15 Anion Gap 15.2 (5-19) 04/04/23 13:15 BUN 17 mg/dL (6-20) 04/04/23 13:15 Creatinine 1.0 mg/dL (0.7-1.2) 04/04/23 13:15 GFR Calculation 77.0 mL/min (90-130) L 04/04/23 13:15 Glucose 92 mg/dL (65-115) 04/04/23 13:15 Calculated Osmolality 291 mOsm/kg (285-295) 04/04/23 13:15 Calcium 8.8 mg/dL (8.5-10.5) 04/04/23 13:15 Total Bilirubin 0.3 mg/dL (0.15-1.2) 04/04/23 13:15 AST 16 U/L (0-40) 04/04/23 13:15 ALT 17 U/L (0-41) 04/04/23 13:15 Alkaline Phosphatase 95 U/L (40-130) 04/04/23 13:15 Total Protein 7.2 g/dL (6.6-8.7) 04/04/23 13:15 Albumin 4.6 g/dL (3.5-5.2) 04/04/23 13:15 Globulin 2.6 g/dL (1.3-4.6) 04/04/23 13:15 Urine Color Yellow (Yellow) 04/04/23 14:25 Urine Appearance Clear (CLEAR) 04/04/23 14:25 Urine pH 6 (5-7) 04/04/23 14:25 Ur Specific [place] 1.025 (1.005-1.030) 04/04/23 14:25 Urine Protein Neg (Negative) 04/04/23 14:25 Urine Glucose (UA) Norm (Normal) 04/04/23 14:25 Urine Ketones Negative (Negative) 04/04/23 14:25 Urine Blood 2+ (Negative) H 04/04/23 14:25 Urine Nitrate Negative (Negative) 04/04/23 14:25 Urine Bilirubin Neg (Negative) 04/04/23 14:25 Urine Urobilinogen Neg mg/dL (Negative) 04/04/23 14:25 Ur Leukocyte Esterase Negative (Negative) 04/04/23 14:25 Urine RBC 5-10 /hpf (0-2) H 04/04/23 14:25 Urine WBC 0-4 /hpf (0-5) H 04/04/23 14:25 Ur Squamous Epith Cells 0-4 /hpf (0-5) H 04/04/23 14:25 Amorphous Sediment 1+ /hpf 04/04/23 14:25 Urine Bacteria Trace /hpf (NONE) 04/04/23 14:25 Urine Mucus 2+ /hpf 04/04/23 14:25 Discharge Plan Discharge Patient Disposition: Home Clinical Impression: Temporal lobe epilepsy, Confusion, Partial epilepsy secondarily generalized Condition: Stable Prescriptions: No Action zonisamide [Zonegran] 100 mg capsule 200 mg PO BID sertraline 100 mg tablet 150 mg PO DAILY Qty: 45 1RF cenobamate 100 mg tablet 100 mg PO DAILY 30 Days Qty: 30 2RF Rx Instructions: after starter packs complete. take in evening cenobamate 12.5 mg (14)- 25 mg (14) tablets,dose pack See Rx Instructions PO PER PKG DIR Qty: 28 0RF Rx Instructions: PO PER PKG DIR cenobamate 50 mg (14)- 100 mg (14) tablets,dose pack See Rx Instructions PO PER PKG DIR Qty: 28 0RF Rx Instructions: PO PER PKG DIR clonazepam 0.5 mg tablet See Rx Instructions PO .COMPLEX Qty: 90 0RF Rx Instructions: orally 2 tablets at 08:00, 1 tablet at 20:00; Lamictal 150 mg tablet 150 mg PO BID@ Vimpat 150 mg tablet 300 mg PO BID@ Discharge Orders: Discharge ED (Routine); Ordered 04/04/23 Ordered By: Chente Urena Referrals: Cornelio Brothers MD [Primary Care Provider] - Discharge Diet: Usual diet Discharge Activity: Resume usual activity Patient Instructions: Opioid Safety, Pain Management Activity Restrictions/Additional Instructions: Follow-up with Dr. Martinez as previously scheduled Coding Level of Care Code ED Supervisor [employer] for Nitish Lawrence
--- NOTE | 2023-04-04 14:00 | PC.NURSE ---
PT NOTED TO REPEAT HIMSELF ON MULTIPLE OCCASIONS. PT STATES THEY REPLACED IT WITH WHATEVER THEY REPLACED IT WITH WHATEVER THEY REPLACED IT, WELL I JUST SAID THAT.
[2023-04-04 14:02] LABS: Alanine Aminotransferase 17 U/L (0-41); Albumin Level 4.6 g/dL (3.5-5.2); Alkaline Phosphatase 95 U/L (40-130); Anion Gap 15.2 (5-19); Aspartate Amino Transferase 16 U/L (0-40); Blood Urea Nitrogen 17 mg/dL (6-20); Calcium 8.8 mg/dL (8.5-10.5); Carbon Dioxide 23 mmol/L (22-29); Chloride 106 mmol/L (98-107); Globulin 2.6 g/dL (1.3-4.6); Glucose 92 mg/dL (65-115); Osmolality Calculated 291 mOsm/kg (285-295); Potassium 4.2 mmol/L (3.5-5.1); Sodium 140 mmol/L (136-145); Total Bilirubin 0.3 mg/dL (0.15-1.2); Total Protein 7.2 g/dL (6.6-8.7)
[2023-04-04 14:09] VITALS: BP 126/82; PULSE 67; RESP 16; O2SAT 98
[2023-04-04 14:35] LABS: Add Urine Microscopic? YES; Bilirubin Urine Neg (Negative); Blood Urine 2+ (Negative); Glucose Urine UA Norm (Normal); Ketones Urine Negative (Negative); Leukocyte Esterase Urine Negative (Negative); Nitrate Urine Negative (Negative); Protein Urine Neg (Negative); Specific Gravity, Urine 1.025 (1.005-1.030); Urine Appearance Clear (CLEAR); Urine Color Yellow (Yellow); Urobilinogen Urine Neg (Negative); pH Urine 6 (5-7)
[2023-04-04 14:45] LABS: Add Urine Culture? No; Amorphous Sediment Urine 1+ /hpf; Bacteria Urine TRACE /hpf; Mucus Urine 2+ /hpf; Squamous Epithelial Cell Urine 0-4 /hpf (0-5); WBC Urine 0-4 /hpf (0-5)
[2023-04-04 15:30] VITALS: BP 127/89; PULSE 72; RESP 16; O2SAT 99
[2023-04-04 15:38] VITALS: BP 127/89; PULSE 72; RESP 16; O2SAT 99
[2023-04-10 10:03] LABS: Lamotrigine (Lamictal) Level 5.4 mcg/mL (2.5-15.0)
[2023-08-13 15:34] LABS: Lacosamide (Vimpat) 16.7
== END 2023-04-04 15:40 | disposition home or self-care (01) ==
PROVIDERS: Emergency Medicine; Emergency Provider Family Medicine; PCP Family Medicine
DX: G40.409 Other generalized epilepsy and epileptic syndromes, not intractable, without status epilepticus (principal); R41.0 Disorientation, unspecified
CPT/HCPCS: 36415; 80053; 80175; 80299; 81001; 85025; 99283

== ENCOUNTER 2023-05-01 07:43 | Outpatient (CLI) | payer MEDICARE, SELFPAY ==
--- NOTE | 2023-05-01 08:13 | CT_ITS ---
WS: [id number] CT HEAD TECHNIQUE: Noncontrast CT of the head obtained from the skullbase to the vertex. CLINICAL INFORMATION: INTRAPARENCHYMAL HEMORRHAGE OF BRAIN/CONTUSION OF CEREBRUM COMPARISON: None. DLP: 1107.[address] scans at [facility] use at least one of these dose optimization techniques: automated e xposure control; mA and/or kV adjustment per patient size (includes targeted exams where dose is matc hed to clinical indication); or iterative reconstruction. FINDINGS: Previously described liver metastases have resolved. No evidence of new hemorrhage or mass effect. Ve ntricular system and basal cisterns are patent. Moderate small vessel changes with moderate parenchym al volume loss. Intracranial vascular calcification.Prior postoperative changes large LEFT frontal pa rietal craniectomy and temporal craniotomy with cranioplasty. Underlying encephalomalacia unchanged. Stable underlying dural calcifications. A few tiny chronic lacunar infarcts RIGHT basal ganglia. No extra-axial fluid collections. No evidence of mass or mass effect. Paranasal sinuses and mastoid a ir cells are well aerated. CT/CT head wo con* [id number] IMPRESSION: 1. No evidence of intracranial hemorrhage or mass effect. 2. Previously described subdural blood products along the LEFT tentorium and i ntraparenchymal hemorrhage along the RIGHT lateral ventricle has resolved pipe red to previous. No areas of new hemorrhage. 3. Prior postoperative changes large LEFT frontal parietal craniectomy and tem poral craniotomy with cranioplasty and underlying encephalomalacia unchanged. 4. Moderate small vessel changes. Moderate parenchymal volume loss. 5. Intracranial vascular calcification. 1. No acute intracranial findings.
== END 2023-05-01 07:44 | disposition home or self-care (01) ==
PROVIDERS: PCP Family Medicine; Visit Provider Physician Assistant
DX: I61.9 Nontraumatic intracerebral hemorrhage, unspecified (principal)
CPT/HCPCS: 70450

== ENCOUNTER → 2023-06-11 10:26 | Outpatient (BNVA) | payer MEDICARE, SELFPAY | PROVIDERS: PCP Family Medicine; Visit Provider Specialist | DX: G40.109 Localization-related (focal) (partial) symptomatic epilepsy and epileptic syndromes with simple partial seizures, not intractable, without status epilepticus; F33.2 Major depressive disorder, recurrent severe without psychotic features; R41.1 Anterograde amnesia; G47.33 Obstructive sleep apnea (adult) (pediatric); G40.409 Other generalized epilepsy and epileptic syndromes, not intractable, without status epilepticus | CPT/HCPCS: 99215 ==

== ENCOUNTER → 2023-09-04 13:33 | Outpatient (BNVA) | payer MEDICARE, SELFPAY | PROVIDERS: PCP Family Medicine; Visit Provider Specialist | DX: G40.109 Localization-related (focal) (partial) symptomatic epilepsy and epileptic syndromes with simple partial seizures, not intractable, without status epilepticus (principal); R41.1 Anterograde amnesia | CPT/HCPCS: 96116; 99214 ==

== ENCOUNTER → 2023-12-23 15:27 | Outpatient (BNVA) | payer MEDICARE, SELFPAY | PROVIDERS: PCP Family Medicine; Visit Provider Specialist | DX: G40.109 Localization-related (focal) (partial) symptomatic epilepsy and epileptic syndromes with simple partial seizures, not intractable, without status epilepticus (principal); R41.1 Anterograde amnesia | CPT/HCPCS: 99214 ==

== ENCOUNTER 2024-03-14 07:37 | Emergency (ER) | payer MEDICARE, SELFPAY ==
[2024-03-14 07:46] VITALS: BP 141/79; PULSE 62; TEMP 36.6; O2SAT 100; BMI 23.6
--- NOTE | 2024-03-14 07:48 | W.ED.EYEPROB ---
HPI - Eye Problem General: Chief complaint: Eye Problems Stated complaint: right eye pain Time Seen by Provider: 03/14/24 07:43 Source: patient Mode of arrival: ambulatory Limitations: no limitations History of Present Illness: 59-year-old male states been right eye pain along with redness since last night. He states he was doing woodworking yesterday and it felt like he got something into his right eye. States pain is an 8 out of 10 he had some blurry vision denies any drainage denies any fever. Associated symptoms: Denies fever(s), headache(s), nausea, neck pain or vomiting Review of Systems Const: Denies: fever(s), chills, body aches or change in appetite Eyes: Reports: blurry vision, eye discomfort and eye redness ENMT: Denies: throat pain or dental pain Card: Denies: chest pain Resp: Denies: dyspnea GI: Denies: abdominal pain, nausea, vomiting or diarrhea Musc: Denies: neck pain or back pain Skin/Breast: Denies: rash Neuro: Denies: headache(s) PFSH ED PFSH: Medical History Toxic confusional state Social anxiety disorder Major depressive disorder, recurrent, mild Social phobia, unspecified Major depressive disorder, recurrent severe without psychotic features Surgical History H/O brain surgery 1976 FIRST OF 8 SURGERIES Family History Mother No problems noted. Father , UNKNOWN AGE Alcoholism Other Diabetes Denies family history of CAD (coronary artery disease) Clotting disorder Dementia Hyperlipidemia Psychiatric illness Chronic kidney disease (CKD) Anesthesia complication Bleeding disorder Lung disease Cancer Hypertension Stroke Social History Smoking and tobacco/nicotine status: never used tobacco/nicotine Alcohol intake: never Substance/Drug Use: never Lives independently: Yes Marital status: Single Current occupational status: employed Current occupation: [employer] Current gender identity: Male Special janneth needs: No Physical Exam Const: COMMON NORMALS: no acute distress, patient oriented x3 and healthy appearing HENMT: COMMON NORMALS: normocephalic and atraumatic HEAD & SCALP: normocephalic and atraumatic Eye: COMMON NORMALS: Equal, round and reactive pupils present and EOMs intact bilaterally PUPIL: Yes Equal, round and reactive pupils present OTHER: Erythema noted to right eye no foreign body noted, small abrasion noted under fluoroschein Neck/C-Spine: COMMON NORMALS: full ROM and supple Chest: COMMONS NORMALS: normal inspection of the chest Resp: COMMON NORMALS: normal respiratory effort Cardio: COMMON NORMALS: regular rate, regular rhythm and No murmurs present (Cardio) RATE: regular rate RHYTHM: regular rhythm Extremity: COMMON NORMALS: normal to inspection and full ROM Neuro: COMMON NORMALS: patient oriented x3, moves all extremities and no focal motor deficits Psych: COMMON NORMALS: mental status grossly normal, Normal thought process present and cooperative THOUGHT PROCESS: Normal thought process present Skin: COMMON NORMALS: no rashes or lesions noted and no wounds GENERAL SKIN EXAM: no rashes or lesions noted Course Vital Signs: Vital signs: Vital Signs Temperature 97.8 F 03/14/24 07:46 Pulse Rate 62 03/14/24 07:46 Blood Pressure 141/79 03/14/24 07:46 Pulse Oximetry 100 03/14/24 07:46 Oxygen Delivery Me thod Room Air 03/14/24 07:46 MDM - Eye Problem Medical Decision Making Patient presents with right eye pain with a corneal abrasion no foreign bodies was noted. Did wash his eye out here at the eyewash station. Patient is intraocular pressure was 12 no signs of glaucoma we will place him on erythromycin given follow-up with ophthalmology return if worsening he understands agrees to plan. No radiology studies performed this visit Discharge Plan Discharge Patient Disposition: Home Clinical Impression: Corneal abrasion Condition: Stable Prescriptions: New erythromycin 5 mg/gram (0.5 %) ointment 1 applic ophthalmic (eye) 5XD 7 Days Qty: 3.5 0RF No Action cenobamate 200 mg tablet 200 mg PO DAILY 90 Days Qty: 90 1RF Rx Instructions: take in evening lacosamide [Vimpat] 200 mg tablet 200 mg PO BID Qty: 180 1RF lamotrigine [Lamictal] 100 mg tablet 100 mg PO BID Qty: 180 2RF sertraline 100 mg tablet See Rx Instructions .ROUTE .COMPLEX Qty: 45 1RF Dose Instruction: take one and one-half TABLET BY MOUTH DAILY Rx Instructions: take one and one-half TABLET BY MOUTH DAILY Discharge Orders: Discharge ED (Routine); Ordered 03/14/24 Ordered By: Melodie Hernandez Referrals: Deniz Schmidt [Physician] - 4-7 days Cornelio Brothers MD [Primary Care Provider] - Discharge Diet: Advance as tolerated Discharge Activity: Resume usual activity Patient Instructions: Corneal Abrasion (ED) Coding Level of Care Code ED Forwarder Operator for Nitish Lawrence
[2024-03-14] MEDS: fluorescein 1 mg Strip EYE-RIGHT (08:03)
[2024-03-14] MEDS: tetracaine 0.5% Op Soln 4 mL Btl 1 DROP EYE-RIGHT (08:03)
[2024-03-14 08:15] VITALS: RESP 18
== END 2024-03-14 08:16 | disposition home or self-care (01) ==
PROVIDERS: Emergency Provider Emergency Medicine; PCP Family Medicine
DX: S05.01XA Injury of conjunctiva and corneal abrasion without foreign body, right eye, initial encounter (principal); X58.XXXA Exposure to other specified factors, initial encounter
CPT/HCPCS: 99283

== ENCOUNTER → 2024-06-29 12:25 | Outpatient (BNVA) | payer MEDICARE, SELFPAY | PROVIDERS: PCP Family Medicine; Visit Provider Specialist | DX: G40.109 Localization-related (focal) (partial) symptomatic epilepsy and epileptic syndromes with simple partial seizures, not intractable, without status epilepticus; F33.2 Major depressive disorder, recurrent severe without psychotic features; R41.1 Anterograde amnesia; G47.33 Obstructive sleep apnea (adult) (pediatric) | CPT/HCPCS: 99214 ==

== ENCOUNTER → 2024-10-25 09:10 | Outpatient (BNVA) | payer MEDICARE, SELFPAY | PROVIDERS: PCP Family Medicine; Visit Provider Family Medicine | DX: R42 Dizziness and giddiness (principal); Z13.6 Encounter for screening for cardiovascular disorders; N40.0 Benign prostatic hyperplasia without lower urinary tract symptoms | CPT/HCPCS: 80053; 80061; 84153; 85025 ==

== ENCOUNTER → 2024-11-15 09:09 | Outpatient (BNVA) | payer MEDICARE, SELFPAY | PROVIDERS: PCP Family Medicine; Referring Provider Family Medicine; Visit Provider Student in an Organized Health Care Education/Training Program | DX: Z12.11 Encounter for screening for malignant neoplasm of colon (principal) | CPT/HCPCS: 99204 ==

== ENCOUNTER 2024-12-07 08:13 | Day surgery (SDC) | payer MEDICARE, SELFPAY ==
[2024-12-07 08:28] VITALS: BP 144/94; PULSE 68; RESP 18; TEMP 36.1; O2SAT 95; BMI 23.6
--- NOTE | 2024-12-07 08:35 | ANES.PREANE2 ---
Pre-Anesthetic Assessment Height/Weight: Height 1.75 m Operation Date: 12/07/24 09:15 Proposed Procedures p Colonoscopy 03597, Z12.11(Not Applicable) - Ryan Alcantara MD Familial anesthetic complications: None Was Beta Patricia taken within 24 hours: N/A Was Clonidine taken within 24 hours: N/A Social No alcohol and No tobacco Exam alert, oriented x 3, clear to auscultation bilaterally and regular rate & rhythm Airway Submandibular: within normal limits Cervical ROM: Other (Feels a pop when he turns his head left or right) Mallampati: Class III (Small mouth opening) Dentition: full History/ROS No significant history except as noted and No significant complaints Pulmonary Sleep Apnea (Wears CPAP) CV/HEM None reported None reported Hepatic None reported GI None reported Metabolic None reported Musc/skel Osteoarthritis/DJD Neuropsych Anxiety, Depression and Seizure (Epilepsy last episode 9 years ago, multiple brain surgeries last brain surgery 2005) Memory loss Anesthetic Plan ASA status: 2 Anesthesia: Anesthesia Evaluation, General and MAC Risk of > 500 ml blood loss (7ml/kg in children): No Medications/Allergies Home Medications Medication Instructions Recorded Confirmed Last Taken Type lacosamide 200 mg tablet (Vimpat) 200 mg PO BID #180 tabs 06/29/24 12/02/24 12/02/24 Rx lamotrigine 100 mg tablet 50 mg (1/2 x 100 mg) PO BID #90 06/29/24 12/02/24 12/02/24 Rx (Lamictal) tabs cenobamate 200 mg tablet 200 mg PO BEDTIME 12/02/24 12/02/24 12/02/24 History sertraline 100 mg tablet 150 mg PO DAILY 12/02/24 12/02/24 12/02/24 History Allergies Allergy/AdvReac Type Severity Reaction Status Date / Time No Known Allergies Allergy Verified 11/15/24 09:10 [facility] Anesthesia Medical History Psychiatric care Toxic confusional state Social anxiety disorder Major depressive disorder, recurrent, mild Social phobia, unspecified Major depressive disorder, recurrent severe without psychotic features Surgical History H/O brain surgery 1976 FIRST OF 8 SURGERIES Family History Mother No problems noted. Father , UNKNOWN AGE Alcoholism Other Diabetes Denies family history of CAD (coronary artery disease) Clotting disorder Dementia Hyperlipidemia Psychiatric illness Chronic kidney disease (CKD) Anesthesia complication Bleeding disorder Lung disease Cancer Hypertension Stroke Social History Smoking and tobacco/nicotine status: never used tobacco/nicotine Alcohol intake: never Substance/Drug Use: never Lives independently: Yes Marital status: Single Current occupational status: employed Current occupation: [email or web address] Current gender identity: Male Special janneth needs: No Data Anesthesia Cardiac Studies: No Data to Display
--- NOTE | 2024-12-07 08:42 | W.PM.OPSUD ---
Surgery/Procedure H&P Update DATE OF PROCEDURE: December 07, 2024 DATE H&P PERFORMED: 11/16/24 H&P UPDATE INFORMATION: I have reviewed H&P completed within last 30 days, I have examined patient prior to procedure and No changes to prior documentation PLANNED PROCEDURE: Operation Date: 12/07/24 09:15 Proposed Procedures p Colonoscopy 49152, Z12.11(Not Applicable) - Ryan Alcantara MD
[2024-12-07] MEDS: sodium chloride 0.9% 500 ML 15 ML IV (08:57)
[2024-12-07 09:14] VITALS: BP 125/80; PULSE 73; RESP 14; O2SAT 98
[2024-12-07 09:20] VITALS: BP 120/77; PULSE 71; RESP 16; O2SAT 96
[2024-12-07 09:30] VITALS: BP 127/87; PULSE 79; RESP 18; O2SAT 96
--- NOTE | 2024-12-07 10:02 | ANE.PACU2 ---
Inpatient post-anesthesia follow up: Airway intact: Yes Vital signs: Temperature 97.0 F Pulse Rate 79 Respiratory Rate 18 Blood Pressure 127/87 Pulse Oximetry 96 Oxygen Delivery Me thod Room Air Oxygen Flow Rate Fraction of Inspir ed Oxygen Hydration adequate: Yes Nausea and vomiting: No Pain level: 1 Mental status: Baseline
== END 2024-12-07 10:02 | disposition home or self-care (01) ==
PROVIDERS: PCP Family Medicine; Visit Provider Student in an Organized Health Care Education/Training Program
PROC: 0DJD8ZZ Inspection of Lower Intestinal Tract, Via Natural or Artificial Opening Endoscopic (ICD-10-PCS; CPT 45378; principal; 2024-12-07 09:15)
DX: Z12.11 Encounter for screening for malignant neoplasm of colon (principal); K64.1 Second degree hemorrhoids; G47.30 Sleep apnea, unspecified; Z99.89 Dependence on other enabling machines and devices
CPT/HCPCS: G0121; J2250; J2704; J7040

== ENCOUNTER → 2024-12-21 09:30 | Outpatient (BNVA) | payer MEDICARE, SELFPAY | PROVIDERS: PCP Family Medicine; Visit Provider Specialist | DX: G40.109 Localization-related (focal) (partial) symptomatic epilepsy and epileptic syndromes with simple partial seizures, not intractable, without status epilepticus (principal); E03.9 Hypothyroidism, unspecified; R41.1 Anterograde amnesia; F33.2 Major depressive disorder, recurrent severe without psychotic features; G47.33 Obstructive sleep apnea (adult) (pediatric) | CPT/HCPCS: 36415; 80175; 80299; 84439; 84443; 99214 ==

== ENCOUNTER → 2025-02-09 08:53 | Outpatient (BNVA) | payer OTHER, SELFPAY | PROVIDERS: PCP Family Medicine; Visit Provider Psychiatry & Neurology Psychiatry | DX: F33.2 Major depressive disorder, recurrent severe without psychotic features (principal) | CPT/HCPCS: 83036 ==

== ENCOUNTER → 2025-08-30 13:06 | Outpatient (BNVA) | payer MEDICARE, SELFPAY ==
[2025-02-10 10:31] VITALS: BP 111/67; BMI 22.1
== END ==
PROVIDERS: PCP Family Medicine; Visit Provider Specialist
DX: G40.109 Localization-related (focal) (partial) symptomatic epilepsy and epileptic syndromes with simple partial seizures, not intractable, without status epilepticus (principal); F33.2 Major depressive disorder, recurrent severe without psychotic features; R41.1 Anterograde amnesia; G47.33 Obstructive sleep apnea (adult) (pediatric)
CPT/HCPCS: 99214